=== PATIENT | male | born 1980 | race Caucasian/White ===

== ENCOUNTER 2019-04-16 08:04 | Emergency (ER) | payer OTHER ==
[2019-04-16] MEDS ORDERED: TETRACAINE HCL 0.5% 4ML OPTH ONE (08:24)
[2019-04-16] MEDS ORDERED: HYDROCODONE/APAP 5/325 MG TAB ONE (08:24)
[2019-04-16] MEDS ORDERED: FLUORESCEIN SODIUM 1 MG/WRAP ONE (08:24)
[2019-04-16] MEDS ORDERED: TETANUS & DIPHTHERIA TOX,ADULT 0.5 ML VIAL ONE (08:24)
[2019-04-16] MEDS ORDERED: AMOX/K CLAV 875 MG TAB ONE (08:24)
[2019-04-16] MEDS ORDERED: GENTAMICIN 0.3% OPTH DROP 5ML ONE (08:26)
[2019-04-16] MEDS ORDERED: TOBRAMYCIN SULF 0.3% OPTH OINT ONE (08:43)
--- NOTE | 2019-04-16 08:44 | EDPHYS ---
Physician Documentation [facility] Name: Jose Carlos Reyes Age: 38 yrs Sex: Male : 1980 Arrival Date: 04/16/2019 Time: 08:07 Bed 20 Private MD: ED Physician Truong Morgan HPI: 04/16 08:22 This 38 yrs old Male presents to ER via Ambulatory with complaints of Facial snw Injury. 08:22 The patient or guardian reports abrasion. The complaints affect the lateral canthus of snw left eye and left cheek. Context of injury: The problem was sustained at home, resulted from Dog on the couch lept down and accidentally scratched pt's face. Onset: The symptoms/episode began/occurred suddenly, just prior to arrival. Associated signs and symptoms: Loss of consciousness: This patient did not experience any loss of consciousness. Severity of symptoms: At their worst the symptoms were very mild. The patient has not experienced similar symptoms in the past. The patient has not recently seen a physician. Historical: - Allergies: 08:17 No Known Drug Allergies; tw2 - Home Meds: 08:17 None [Active]; tw2 - PMHx: 08:17 None; tw2 - PSHx: 08:17 None; tw2 - Immunization history:: Adult Immunizations. - Social history:: Smoking status: . - Ebola Screening: : Patient denies travel to an Ebola-affected area in the 21 days before illness onset. ROS: 08:17 Constitutional: Negative for fever, chills, and weight loss, Eyes: Negative for injury, snw pain, redness, and discharge, ENT: Negative for injury, pain, and discharge, Neck: Negative for injury, pain, and swelling, Cardiovascular: Negative for chest pain, palpitations, and edema, Respiratory: Negative for shortness of breath, cough, wheezing, and pleuritic chest pain, Abdomen/GI: Negative for abdominal pain, nausea, vomiting, diarrhea, and constipation, Back: Negative for injury and pain, : Negative for injury, bleeding, discharge, and swelling, MS/Extremity: Negative for injury and deformity, Neuro: Negative for headache, weakness, numbness, tingling, and seizure, Psych: Negative for depression, anxiety, suicide ideation, homicidal ideation, and hallucinations. 08:17 Skin: Positive for abrasion(s), of the lateral canthus of left eye and left cheek. Exam: 08:17 Constitutional: This is a well developed, well nourished patient who is awake, alert, snw and in no acute distress. ENT: Nares patent. No nasal discharge, no septal abnormalities noted. Tympanic membranes are normal and external auditory canals are clear. Oropharynx with no redness, swelling, or masses, exudates, or evidence of obstruction, uvula midline. Mucous membranes moist. Neck: Trachea midline, no thyromegaly or masses palpated, and no cervical lymphadenopathy. Supple, full range of motion without nuchal rigidity, or vertebral point tenderness. No Meningismus. Chest/axilla: Normal chest wall appearance and motion. Nontender with no deformity. No lesions are appreciated. Cardiovascular: Regular rate and rhythm with a normal S1 and S2. No gallops, murmurs, or rubs. Normal PMI, no JVD. No pulse deficits. Respiratory: Lungs have equal breath sounds bilaterally, clear to auscultation and percussion. No rales, rhonchi or wheezes noted. No increased work of breathing, no retractions or nasal flaring. Abdomen/GI: Soft, non-tender, with normal bowel sounds. No distension or tympany. No guarding or rebound. No evidence of tenderness throughout. Back: No spinal tenderness. No costovertebral tenderness. Full range of motion. Skin: Warm, dry with normal turgor. Normal color with no rashes, no lesions, and no evidence of cellulitis. MS/ Extremity: Pulses equal, no cyanosis. Neurovascular intact. Full, normal range of motion. Neuro: Awake and alert, GCS 15, oriented to person, place, time, and situation. Cranial nerves II-XII grossly intact. Motor strength 5/5 in all extremities. Sensory grossly intact. Cerebellar exam normal. Normal gait. Psych: Awake, alert, with orientation to person, place and time. Behavior, mood, and affect are within normal limits. 08:17 Head/face: Noted is abrasion(s), that are mild, of the left cheek and left eye. 08:17 Eyes: Pupils: equal, Extraocular movements: no acute changes, Conjunctiva: injected, in the left eye, Sclera: no appreciated abnormality. Vital Signs: 08:19 BP 147 / 73; Pulse 45; Resp 16; Temp 98.0; Pulse Ox 98% on R/A; Weight 145.15 kg; iw Height 6 ft. 3 in. (190.50 cm); Pain 3/10; 08:19 Body Mass Index 40.00 (145.15 kg, 190.50 cm) iw [place] Coma Score: 08:22 Eye Response: spontaneous(4). Verbal Response: oriented(5). Motor Response: obeys snw commands(6). Total: 15. MDM: 08:24 Patient medically screened. luna 04/16 08:17 Order name: Eye Tray; Complete Time: 08:35 snw 04/16 08:17 Order name: Fluoresene Opth strip; Complete Time: 08:20 snw Administered Medications: 08:29 Drug: Tetanus-Diphtheria Toxoid Adult 0.5 ml {Vac Press Operator: [employer]. Exp: em 11/11/2020. Lot #: [id number]. } Route: IM; Site: right deltoid; 08:49 Follow up: Response: No adverse reaction em 08:30 Drug: Goltry 5 mg-325 mg 1 tabs Route: PO; em 08:49 Follow up: Response: No adverse reaction; Pain is decreased em 08:30 Drug: Augmentin 875 mg Route: PO; em 08:50 Follow up: Response: No adverse reaction em 08:32 Drug: Tetracaine Drops 0.5 % 1 drops Route: Ophthalmic; Site: left eye; em 08:35 Follow up: Response: No adverse reaction; Pain is decreased em 08:35 Not Given (Other Intervention Used): ERYTHromycin Ointment 1 application Ophthalmic onceem 08:43 CANCELLED (other intervention used): Gentamicin Drops 0.3 % 2 drops Ophthalmic once; snw left eye 08:44 Drug: Tobramycin Ointment (0.3 %) 0.5 inches Route: Ophthalmic; Site: left eye; em 08:51 Follow up: Response: No adverse reaction em Disposition: 04/16/19 08:44 Discharged to Home. Impression: Abrasion of other part of head - face, Injury of conjunctiva and corneal abrasion without foreign body, left eye. - Condition is Stable. - Discharge Instructions: Abrasion, Corneal Abrasion, VIS, Tetanus, Diphtheria (Td) - CDC. - Prescriptions for Augmentin 875- 125 mg Oral Tablet - take 1 tablet by ORAL route every 12 hours for 10 days; 20 tablet. Mobic 7.5 mg Oral Tablet - take 1 tablet by ORAL route once daily take with food; 20 tablet. - Medication Reconciliation Form, Thank You Letter, Antibiotic Education, Prescription Opioid Use form. - Follow up: Private Physician; When: 2 - 3 days; Reason: Recheck today's complaints, Continuance of care, Re-evaluation by your physician. Follow up: Emergency Department; When: As needed; Reason: Worsening of condition. Addendum: 04/17/2019 13:20 Co-signature as Attending Physician, Truong Morgan MD I agree with the assessment and c kraus plan of care. Signatures: Truong Morgan, Hilda Harvey MD, cha, MANAGER HUMAN CAPITAL-C MANAGER HUMAN CAPITAL-Csnw Karl Nguyen, EMERGENCY ROOM DOCTOR EMERGENCY ROOM DOCTOR em Moon Molina, RN RN tw2 Corrections: (The following items were deleted from the chart) 04/16 08:43 08:36 Gentamicin Drops 0.3 % 2 drops Ophthalmic once; left eye ordered. em snw 08:43 08:43 Gentamicin Drops 0.3 % 2 drops Ophthalmic once; left eye ordered. snw snw 08:52 08:44 04/16/2019 08:44 Discharged to Home. Impression: Abrasion of other part of head - em face; Injury of conjunctiva and corneal abrasion without foreign body, left eye. Condition is Stable. Discharge Instructions: Abrasion, VIS, Tetanus, Diphtheria (Td) - CDC, Corneal Abrasion. Prescriptions for Augmentin 875-125 mg Oral Tablet - take 1 tablet by ORAL route every 12 hours for 10 days; 20 tablet, Mobic 7.5 mg Oral Tablet - take 1 tablet by ORAL route once daily take with food; 20 tablet. and Forms are Medication Reconciliation Form, Thank You Letter, Antibiotic Education, Prescription Opioid Use. Follow up: Private Physician; When: 2 - 3 days; Reason: Recheck today's complaints, Continuance of care, Re-evaluation by your physician. Follow up: Emergency Department; When: As needed; Reason: Worsening of condition. snw
--- NOTE | 2019-04-16 08:44 | ER ---
Nurse's Notes [facility] Name: Jose Carlos Reyes Age: 38 yrs Sex: Male : 1980 Arrival Date: 04/16/2019 Time: 08:07 Bed 20 Private MD: Diagnosis: Abrasion of other part of head-face;Injury of conjunctiva and corneal abrasion without foreign body, left eye Presentation: 04/16 08:17 Presenting complaint: Patient states: was lying on a mattress on floor beside couch, iw dog jumped off couch and landed on his face, scratched his left eye, left cheek, redness to left eye. Transition of care: patient was not received from another setting of care. 08:18 Initial Sepsis Screen: Does the patient meet any 2 criteria? No. Patient's initial tw2 sepsis screen is negative. Does the patient have a suspected source of infection? No. Patient's initial sepsis screen is negative. Care prior to arrival: None. 08:18 Transition of care: patient was not received from another setting of care. Onset of tw2 symptoms was April 16, 2019. Risk Assessment: Do you want to hurt yourself or someone else? Patient reports no desire to harm self or others. 08:18 Method Of Arrival: Ambulatory tw2 08:19 Acuity: ERNESTINE 4 iw Historical: - Allergies: 08:17 No Known Drug Allergies; tw2 - Home Meds: 08:17 None [Active]; tw2 - PMHx: 08:17 None; tw2 - PSHx: 08:17 None; tw2 - Immunization history:: Adult Immunizations. - Social history:: Smoking status: . - Ebola Screening: : Patient denies travel to an Ebola-affected area in the 21 days before illness onset. Screenin:16 Abuse screen: Denies threats or abuse. Nutritional screening: No deficits noted. tw2 Tuberculosis screening: No symptoms or risk factors identified. Fall Risk None identified. Assessment: 08:26 General: Appears in no apparent distress. Behavior is calm, cooperative. Pain: iw Complains of pain in left eye and left cheek. Neuro: Level of Consciousness is awake, alert, obeys commands, Oriented to person, place, time, situation. Cardiovascular: Patient's skin is warm and dry. Respiratory: Respiratory effort is even, unlabored, Respiratory pattern is regular. Derm: Skin is healthy with good turgor. Musculoskeletal: Range of motion: intact in all extremities. Injury Description: Abrasion sustained to left cheek. Vital Signs: 08:19 BP 147 / 73; Pulse 45; Resp 16; Temp 98.0; Pulse Ox 98% on R/A; Weight 145.15 kg; iw Height 6 ft. 3 in. (190.50 cm); Pain 3/10; 08:19 Body Mass Index 40.00 (145.15 kg, 190.50 cm) iw [place] Coma Score: 08:22 Eye Response: spontaneous(4). Verbal Response: oriented(5). Motor Response: obeys snw commands(6). Total: 15. ED Course: 08:07 Patient arrived in ED. rg4 08:15 Hilda Castanon FNP-C is PHCP. snw 08:15 Truong Morgan MD is Attending Physician. snw 08:17 Arm band placed on. tw2 08:18 Bed in low position. Adult w/ patient. tw2 08:19 Triage completed. iw 08:23 Karl Nguyen LVN is Primary Nurse. em 08:48 No provider procedures requiring assistance completed. Patient did not have IV access em during this emergency room visit. Administered Medications: 08:29 Drug: Tetanus-Diphtheria Toxoid Adult 0.5 ml {Inspector Paper Products: [employer]. Exp: em 11/11/2020. Lot #: [id number]. } Route: IM; Site: right deltoid; 08:49 Follow up: Response: No adverse reaction em 08:30 Drug: [place] 5 mg-325 mg 1 tabs Route: PO; em 08:49 Follow up: Response: No adverse reaction; Pain is decreased em 08:30 Drug: Augmentin 875 mg Route: PO; em 08:50 Follow up: Response: No adverse reaction em 08:32 Drug: Tetracaine Drops 0.5 % 1 drops Route: Ophthalmic; Site: left eye; em 08:35 Follow up: Response: No adverse reaction; Pain is decreased em 08:35 Not Given (Other Intervention Used): ERYTHromycin Ointment 1 application Ophthalmic onceem 08:43 CANCELLED (other intervention used): Gentamicin Drops 0.3 % 2 drops Ophthalmic once; snw left eye 08:44 Drug: Tobramycin Ointment (0.3 %) 0.5 inches Route: Ophthalmic; Site: left eye; em 08:51 Follow up: Response: No adverse reaction em Outcome: 08:44 Discharge ordered by . ludivina 08:48 Discharged to home ambulatory, with family. em 08:48 Condition: good 08:48 Discharge instructions given to patient, family, Instructed on discharge instructions, follow up and referral plans. medication usage, Demonstrated understanding of instructions, follow-up care, medications, Prescriptions given X 2. 08:52 Patient left the ED. em Signatures: Hilda Castanon, GLASSWARE MAKER-C GLASSWARE MAKER-Csnw Karl Nguyen, FOAMING MACHINE OPERATOR FOAMING MACHINE OPERATOR em Lucía Martinez, RN RN iw Moon Molina RN RN tw2 Charo Frazier 4
[2019-04-16 08:56] VITALS: BP 147/73; TEMP 98; O2SAT 98
--- OUTSIDE RECORDS SUMMARY | 2019-04-18 06:11 | XMS REPORT | Summary of Care ---
:1980 Author Organization [facility] Address [address] [place] [id number] Care Team Providers Name Role Phone Lucio Jin MD Primary Care Provider Unavailable Reason for Visit Reason Comments Follow-up AUDIOGRAM CI eval Encounter Details Date Type Department Care Team Description 12/10/2018 Office Visit [facility] Ear, Nose Kadeem, Ludy, Auditory canal atresia, external (Primary Dx); and Throat-League PA-C Aural atresia; City [address] [place] [address] Mixed conductive and sensorineural hearing loss of both ears [address] [place] [phone] Allergies No Known Allergiesdocumented as of this encounter (statuses as of 01/11/2019) Medications Medication Sig Dispensed Refills Start Date End Date Status ciprofloxacin-dexamethas Place 4 Drops in 7.5 mL 2 11/19/2018 Active one (CIPRODEX) 0.3-0.1 % left ear 2 (two) otic dropsIndications: times daily. Mixed conductive and sensorineural hearing loss of both ears documented as of this encounter (statuses as of 01/11/2019) Active Problems Not on filedocumented as of this encounter (statuses as of 01/11/2019) Social History Tobacco Use Types Packs/Day Years Used Date Never Smoker Smokeless Tobacco: Never Used Sex Assigned at Date Recorded Not on file Job Start Date Occupation Industry Not on file Not on file Not on file Travel History Travel Start Travel End No recent travel history available. documented as of this encounter Last Filed Vital Signs Vital Sign Reading Time Taken Comments Blood Pressure - - Pulse - - Temperature - - Respiratory Rate - - Oxygen Saturation - - Inhaled Oxygen Concentration - - Weight 149.2 kg (329 lb) 12/10/2018 3:44 PM CDT Height - - Body Mass Index 44.62 11/19/2018 10:34 AM CDT documented in this encounter Patient Instructions Patient InstructionsRamila Perez - 12/10/2018 3:30 PM CDT Your surgery is scheduled on: 02/11/2019 (you will receive a call on 2018 between 1pm-4:30pm with time of surgery) [facility] [address] [place] [id number] Day Surgery If you have any questions, or if you need to cancel/reschedule the surgery or post-op appointments, please contact us at [phone]. Thank you. documented in this encounter Progress Notes Thomas Stephens MD - 12/10/2018 3:30 PM CDTAfter discussion with Marlys Ghotra. Medicaid will only cover one ear. Pt has no preference asto which ear to implant. Will therefore plan on left side. udy Quan PA-C - 12/10/2018 3:30 PM CDT Otolaryngology Clinic Visit Name: Jose Carlos Reyes Date: 12/10/2018 CC: Pre-op for BAHA HPI: Jose Carlos Reyes is a 38 year old male with cognitive impairment and bilateral aural atresia s/pmultiple otologic surgeries for repair at OSH here today for pre-op and signing of surgical consentsfor bilateral BAHA implantation. He was seen previously for evaluation of hearing loss where L auralpolyp and associated infection was noted and now resolved. Audiogram demonstrated severe mixed HL bilaterally. CT results below. Patient is accompanied by a friend who provides most of the history. No new concerns today. Patient would like to pursue a surgical intervention at this time. No other ENT complaints or concerns voiced by patient today. PMHX Past Medical History: Diagnosis Date Congenital hearing loss Past Surgical History: Procedure Laterality Date OTOPLASTY FMHX History reviewed. No pertinent family history. Social Hx Social History Socioeconomic History Marital status: Single Spouse name: Not on file Number of children: Not on file Years of education: Not on file Highest education level: Not on file Occupational History Not on file Social Needs Financial resource strain: Not on file Food insecurity: Worry: Not on file Inability: Not on file Transportation needs: Medical: Not on file Non-medical: Not on file Tobacco Use Smoking status: Never Smoker Smokeless tobacco: Never Used Substance and Sexual Activity Alcohol use: Not on file Drug use: Not on file Sexual activity: Not on file Lifestyle Physical activity: Days per week: Not on file Minutes per session: Not on file Stress: Not on file Relationships Social connections: Talks on phone: Not on file Gets together: Not on file Attends confucianist service: Not on file Active member of club or organization: Not on file Attends meetings of clubs or organizations: Not on file Relationship status: Not on file Intimate partner violence: Fear of current or ex partner: Not on file Emotionally abused: Not on file Physically abused: Not on file Forced sexual activity: Not on file Other Topics Concern Not on file Social History Narrative Not on file ROS: Constitutional: No undesired weight loss, night sweats or chills. Head: No headaches. No lumps or bumps in the scalp. Eyes: No changes in vision. Ears: hearing loss Throat: No changes in voice or swallowing function. Respiratory: No shortness of breath, cough, or blood in sputum. Cardiovascular: No chest pain or palpitations. No acute difference in exercise tolerance. Abdomen: No abdominal pain. No blood in stool. Urinary: No pelvic pain or blood in the urine. Extremities: No numbness in hands or toes. No swelling of the hands or feet. Neurologic: No acute changes in gait or mobility. No weakness in extremities. Does patient smoke: no Patient counseled on smoking cessation: no PE: Vitals: 12/10/18 1544 Weight: 329 lb (149.2 kg) Constitutional: Normocephalic, atraumatic, obese Eye: No lesions or asymmetry. Pupils grossly symmetric. No gross vision loss. Ears: Right ear with postauricular scar, evidence of multiple prior surgeries of external auricle. Bilateral canal atresia. Circumferential scarring and lateralization of tremaine TM bilaterally. Nose: No external deviations. Nasal airways are bilaterally patent. Anterior rhinoscopy reveals nomasses, lesions, or drainage bilaterally. Oral Cavity: No trismus. Lips are normal. Oral cavity mucosa is intact. Dentition is poor.Tongue is full, midline, and soft. Oropharynx: Normal with no evidence of masses, lesions, or drainage. Neck/Lymph: Palpation of the parotid areas and lateral necks bilaterally reveal no masses or lymphadenopathy. Range of motion of the neck is normal. Anteriorly, the trachea is midline and the thyroid is non-palpable. Cranial Nerves/Neuro: Cranial nerves 2-12 are normal and symmetric. Specifically , facial nerve intact. Respiratory: Effortless breathing, No stridor. Cardiovascular: Radial pulses strong and symmetric. Hands and digits well perfused. Head and Neck Skin: No skin lesions or masses. Results CT Temporal Bone 11/19/2018 There is complete opacification in the mid external canal with otherwise preserved morphology. No osseous erosions are seen. The right tympanic membrane is faintly visualized. The middle ear ossicles and middle ear cavity are unremarkable. The osseous inner ear structures and facial nerve canal are within normal limits. The right mastoid air cells are slightly underpneumatized but otherwise clear. Chronic ossifications are seen in the external auditory canals, inferior margin and subcutaneous soft tissues. These are likely dystrophic (3:19). LEFT TEMPORAL BONE: Complete obliteration of the lumen of the left external auditory canal is seen in the medial third. The morphology of the left external artery canal is slightly straightened. Otherwise no osseous erosions are seen. Secondary to the opacification in the medial aspect of the left internal artery canal. The left tympanic membrane is not separately identified. The osseous inner ear structures are grossly unremarkable. The left middle ear cavity and mastoid air cells are clear. The osseous inner ear structures and facial nerve canal are within normal limits. Ill-defined ossifications are again noted adjacent to the floor of the left external auditory canal, possibly dystrophic. Diagnostic Tests Reviewed: Audiogram 11/09/18 Severe mixed hearing loss bilaterally (R>L). WDS 80% (R), 88% (L). Tympanometry: Type B tympanogram bilaterally. Diagnosis ICD-10-CM ICD-9-CM 1. 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 Aural atresia Q17.9 744.29 3. Mixed conductive and sensorineural hearing loss of both ears H90.6 389.22 PA Attestation: ILudy PA-C was involved in this patient's care as directed by Dr. Stephens, who evaluated the patient, performed the services, and formulated the plan of care below. 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 L otorrhea and aural polyp has resolved with oral and topical treatment. Dr Stephens met withpatient and his friend today to sign consents for the BAHA surgery today. Dr. Stephens discussed all details of the surgery with patient today. -Discussed indications, benefits, and risks of bilateral BAHA with patient today. -Consent/Education: The patient was educated concerning the patient's health status and planned surgical procedure as well as possible alternative therapies. Both written and verbal education was givenpreoperatively including the usual risks, benefits, and possible complications. These were discussedand the patient verbalized understanding and desired to proceed with the surgical plan. -All risks, benefits, complications, and alternatives including but not limited to pain, infection, bleeding, damage to surrounding structures, failure to cure , need for further procedures, recurrence,scarring outcome were discussed. -Consent provided and signed by patient with Dr. Stephens today. RTC: 1 week post-op (will schedule in Ludy Quan PA-C's clinic with Dr. Stephens to evaluate patient post-op.) This visit did not involve counseling and coordination that comprised more than 50% of the visit time. Ludy Quan PA-C [facility] Department of Otolaryngology [phone] signed by Ludy Quan PA-C at 12/13/2018 8:26 AM CDTdocumented in this encounter Plan of Treatment Date Type Specialty Care Team Description 02/11/2019 Hospital Encounter Surgery Thomas Stephens MD [id number] [place] [address] [phone] 02/11/2019 Surgery Surgery Thomas Stephens MD [facility] [id number] [place], [place] [id number] 02/18/2019 Office Visit Otolaryngology Ludy Quan PA-C [address] [place] [address] [phone] Health Maintenance Due Date Last Done Comments VARICELLA VACCINES (1 of 2 - 13+ 1993 2-dose series) DTaP,Tdap,and Td Vaccines (1 - 11/15/1999 Tdap) INFLUENZA VACCINE 02/06/2019 PNEUMOCOCCAL 0-64 YEARS COMBINED Aged Out No longer eligible based on SERIES patient's age to complete this topic documented as of this encounter Results Not on filedocumented in this encounter Visit Diagnoses Diagnosis Auditory canal atresia, external - Primary Other congenital anomaly of external ear causing impairment of hearing Aural atresia Other congenital anomaly of ear Mixed conductive and sensorineural hearing loss of both ears Mixed hearing loss, bilateral documented in this encounter Insurance Payer Benefit Plan / Subscriber ID Effective Dates Phone Address Type Group [facility] xxxxxxxxx 2018-Present Medicaid COMM PLAN - PLUS MANAGED MEDICAID documented as of this encounter
--- OUTSIDE RECORDS SUMMARY | 2019-04-18 06:11 | XMS REPORT | Summary of Care ---
:1980 Author Organization [facility] - Health Address [address] [place] [address] Care Team Providers Name Role Phone Lucio Jin MD Primary Care Provider Unavailable Reason for Visit Reason Comments Hearing Aid Evaluation Follow-up Encounter Details Date Type Department Care Team Description 12/31/2018 Telephone [facility] Ear, Nose Steph Mart AUD Hearing Aid and Th[facility] [address] [place] [address]. Evaluation; [place] [address] [address] [phone] [place] [address] Allergies No Known Allergiesdocumented as of this encounter (statuses as of 01/07/2019) Medications Medication Sig Dispensed Refills Start Date End Date Status ciprofloxacin-dexamethas Place 4 Drops in 7.5 mL 2 11/19/2018 Active one (CIPRODEX) 0.3-0.1 % left ear 2 (two) otic dropsIndications: times daily. Mixed conductive and sensorineural hearing loss of both ears documented as of this encounter (statuses as of 01/07/2019) Active Problems Not on filedocumented as of this encounter (statuses as of 01/07/2019) Social History Tobacco Use Types Packs/Day Years Used Date Never Smoker Smokeless Tobacco: Never Used Sex Assigned at Date Recorded Not on file Job Start Date Occupation Industry Not on file Not on file Not on file Travel History Travel Start Travel End No recent travel history available. documented as of this encounter Last Filed Vital Signs Not on filedocumented in this encounter Plan of Treatment Date Type Specialty Care Team Description 02/11/2019 Hospital Encounter Surgery Thomas Stephens MD [id number] [place], [place] [address] 02/11/2019 Surgery Surgery Thomas Stephens MD BONE ANCHORED HEARING [address] AIDE INSERTION [id number] [place], [place] [id number] 02/18/2019 Office Visit Otolaryngology Ludy Quan PA-C [address] [place] [address] [phone] Health Maintenance Due Date Last Done Comments VARICELLA VACCINES (1 of 2 - 13+ 1993 2-dose series) DTaP,Tdap,and Td Vaccines (1 - 11/15/1999 Tdap) INFLUENZA VACCINE 02/06/2019 PNEUMOCOCCAL 0-64 YEARS COMBINED Aged Out No longer eligible based on SERIES patient's age to complete this topic documented as of this encounter Results Not on filedocumented in this encounter Insurance Payer Benefit Plan / Subscriber ID Effective Dates Phone Address Type Group [facility] xxxxxxxxx 2018-Present Medicaid COMM PLAN - PLUS MANAGED MEDICAID documented as of this encounter
--- OUTSIDE RECORDS SUMMARY | 2019-04-18 06:11 | XMS REPORT ---
:1980 Author [facility] Address [address] [place] [address] Dr. Reyes[address] [place] [address] Care Team Providers Name Role Phone Unavailable Unavailable Unavailable Problems This patient has no known problems. Allergies, Adverse Reactions, Alerts This patient has no known allergies or adverse reactions. Medications This patient has no known medications.
--- OUTSIDE RECORDS SUMMARY | 2019-04-18 06:11 | XMS REPORT | Encounter Summary ---
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 Hearing loss 4. Bleeding from ear 5. Otalgia Discussion Note: None recorded.Patient educational handouts: No information available. Plan of Care Patient Instructions Patient discharged with the following instructions per Dr. Jin Referring out to see an [facility]olgist [facility] for futher evaluation Follow up on PRN basis If any other problem patient is to call the office Patient verbalized understanding the instructions given along with my office nurse Maisha Reminders Provider Appointments None recorded. Lab None recorded. Referral None recorded. Procedures None recorded. Surgeries None recorded. Imaging None recorded. Medications Name Start Date Lialda 1.2 gram tablet,delayed release omeprazole 20 mg capsule,delayed release Medications Administered None recorded. Vitals Height Weight BMI Blood Pressure 6 ft 2 in 330.2 lbs 42.4 kg/m2 120/84 mm[Hg] Lab Results None recorded. Allergies Code Code System Name Reaction Severity Status Onset NKDA Problems No Known Problems Procedures None recorded. Vaccine List None recorded. Social History Smoking Status Never Smoker Past Encounters 10/27/2018 Congenital Absence of External Ear; Stenosis of External Auditory Canal; Hearing Loss; Bleeding from Ear; Otalgia Lucio Jin MD: [address], [address], [place] [address], Ph. History of Present Illness None recorded. Review of Systems ENT ROS Reported By: Patient ENMT: ENMT: ear pain, hearing loss, sinus pressure, congestion, runny nose Physical Exam ENT Exam Davin Focus-No Stethoscope Reported By: Patient Constitutional: General Appearance: obese. Communication: aphonic Head/Face: Inspection: scarring. Facial strength: left-sided weakness (House grade ), right-sided weakness (House grade ). Sinuses: no tenderness. 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 Left External auditory canal: ; severe meatal stenosis and bleeding
--- OUTSIDE RECORDS SUMMARY | 2019-04-18 06:12 | XMS REPORT | Summary of Care ---
:1980 Author Organization [facility] - [facility] Address [address] [place] [address] Care Team Providers Name Role Phone Lucio Jin MD Primary Care Provider Unavailable Reason for Visit Reason Comments Appointment Post op Encounter Details Date Type Department Care Team Description 02/14/2019 Telephone [facility] Ear, Nose Thomas Stephens MD Appointment (Post op) and Throat-[id number] [place] [phone] Allergies No Known Allergiesdocumented as of this encounter (statuses as of 02/15/2019) Medications Medication Sig Dispensed Refills Start Date End Date Status omeprazole 20 mg TAKE 1 CAPSULE BY 3 11/29/2018 Active capsule MOUTH IN THE MORNING LIALDA 1.2 gram EC 2 TABLETS BY MOUTH 3 11/29/2018 Active tablet TWICE A DAY ibuprofen 600 mg Take 1 tablet by 60 tablet 0 02/11/2019 Active tabletIndications: mouth every 6 Conductive hearing (six) hours as loss, bilateral needed for Pain (scale 1-3) or Pain (scale 4-6). HYDROcodone-acetaminop Take 1 tablet by 30 tablet 0 02/11/2019 Active hen 5-325 mg mouth every 6 tabletIndications: (six) hours as Conductive hearing needed for Pain loss, bilateral (scale 4-6) or Pain (scale 7-10). documented as of this encounter (statuses as of 02/15/2019) Active Problems No known active problemsdocumented as of this encounter (statuses as of 2018) Social History Tobacco Use Types Packs/Day Years [...] Treatment Date Type Specialty Care Team Description 02/25/2019 Office Visit Otolaryngology Ludy Quan PA-C [address] [place] [address] [phone] Health Maintenance Due Date Last Done Comments VARICELLA VACCINES (1 of 2 - 13+ 1993 2-dose series) DTaP,Tdap,and Td Vaccines (1 - 11/15/1999 Tdap) INFLUENZA VACCINE (#1) 2019 PNEUMOCOCCAL 0-64 YEARS COMBINED Aged Out No longer eligible based on SERIES patient's age to complete this topic documented as of this encounter Implants Implanted Type Area Rug Cleaner Hand Device Shelf Model / Identifier Expiration Date Serial / Lot Baha Implant [id number] 4mm & [id number] Implant Magnet [employer]chle[employer] #[id number] & [id number] - Sna Left: Ear [employer]chlear [employer] 06/23/2023 [id number] & [id number] / Implanted: Qty: 1 on 02/11/2019 at [facility] NA / [id number] Baha Implant [id number] 4mm & [id number] Implant Magnet [employer]chlear [employer] #[id number] & [id number] - Sna Left: Ear [employer]chlear [employer] 12/15/2022 [id number] & [id number] / Implanted: Qty: 1 on 02/11/2019 at [facility] NA / [id number] documented as of this encounter Results Not on filedocumented in this encounter Insurance Payer Benefit Plan / Subscriber ID Effective Dates Phone Address Type Group [facility] xxxxxxxxx 2018-Present Medicaid COMM PLAN - PLUS MANAGED MEDICAID documented as of this encounter
--- OUTSIDE RECORDS SUMMARY | 2019-04-18 06:12 | XMS REPORT | Summary of Care ---
:1980 Author Organization [facility] - Health Address [address] [place] [address] Care Team Providers Name Role Phone Lucio Jin MD Primary Care Provider Unavailable Reason for Visit Reason Comments Assessment Encounter Details Date Type Department Care Team Description 02/24/2019 Telephone [facility] Ear, Nose and YoungThomas MD Assessment Throat-[address] CF[address] [address] [place] [address] [place] [phone] Allergies No Known Allergiesdocumented as of this encounter (statuses as of 02/25/2019) Medications Medication Sig Dispensed Refills Start Date [...] as of this encounter (statuses as of 02/25/2019) Active Problems No known active problemsdocumented as [...] Treatment Date Type Specialty Care Team Description 03/04/2019 Office Visit Otolaryngology Ludy Quan PA-C [address] [place] [address] [phone] Health Maintenance Due Date Last Done Comments VARICELLA VACCINES (1 of 2 - 13+ 1993 2-dose series) DTaP,Tdap,and Td Vaccines (1 - 11/15/1999 Tdap) INFLUENZA VACCINE (#1) 2019 PNEUMOCOCCAL 0-64 YEARS COMBINED Aged Out No longer eligible based on SERIES patient's age to complete this topic documented as of this encounter Implants Implanted Type Area Computing Tutor Device Shelf Model / Identifier Expiration Date Serial / Lot Baha Implant [id number] 4mm & [id number] Implant Magnet [employer]chlear [employer] #[id number] & [id number] - Sna Left: Ear [employer]chlear [employer] 06/23/2023 [id number] & [id number] / Implanted: Qty: 1 on 02/11/2019 at [facility] NA / [id number] Baha Implant [id number] 4mm & [id number] Implant Magnet [employer]chlear [employer] #[id number] & [id number] - Sna Left: Ear [employer]chlear [employer] 12/15/2022 [id number] & [id number] / Implanted: Qty: 1 on 02/11/2019 at [facility] NA / [id number] documented as of this encounter Results Not on filedocumented in this encounter Insurance Payer Benefit Plan / Subscriber ID Effective Dates Phone Address Type Group [facility] xxxxxxxxx 2018-Present Medicaid COMM PLAN - PLUS MANAGED MEDICAID documented as of this encounter
--- OUTSIDE RECORDS SUMMARY | 2019-04-18 06:12 | XMS REPORT | Summary of Care ---
:1980 Author Organization [facility] Address [address] [place] [address] Care Team Providers Name Role Phone Lucio Jin MD Primary Care Provider Unavailable Reason for Referral Other (Routine) Status Reason Specialty Diagnoses / Referred By Referred To Procedures Contact Contact New Request Diagnoses Conductive hearing loss, bilateral Thomas Stephens MD [place], [place], [place] Procedures Discharge Follow-up: Specialty Provider MIHAI RODRIGUEZ; 1 Week 301 [facility] [address] [address] Phone: Reason for Visit Auth/Cert Status Reason Specialty Diagnoses / Procedures Referred By Contact Referred To Contact Surgery Diagnoses baha Vl Preop Procedures [facility] CODING HELP BONE ANCHORED HEARING AIDE INSERTION [address] [place] [address] Encounter Details Date Type Department Care Team Description 02/11/2019 Hospital Encounter [facility] Thomas Stephens MD Post Anesthesia Care Unit [address] [facility] [address] [phone] Allergies No Known Allergiesdocumented as of this encounter (statuses as of 02/11/2019) Medications Medication Sig Dispensed Refills Start Date End Date Status omeprazole 20 mg TAKE 1 3 11/29/2018 Active capsule CAPSULE BY MOUTH IN THE MORNING LIALDA 1.2 gram EC 2 TABLETS BY 3 11/29/2018 Active tablet MOUTH TWICE A DAY ibuprofen 600 mg Take 1 tablet 60 tablet 0 02/11/2019 Active tabletIndications: by mouth Conductive hearing every 6 (six) loss, bilateral hours as needed for Pain (scale 1-3) or Pain (scale 4-6). HYDROcodone-acetamin Take 1 tablet 30 tablet 0 02/11/2019 Active ophen 5-325 mg by mouth tabletIndications: every 6 (six) Conductive hearing hours as loss, bilateral needed for Pain (scale 4-6) or Pain (scale 7-10). ciprofloxacin-dexame Place 4 Drops 7.5 mL 2 11/19/2018 02/09/2019 Discontinued thasone (CIPRODEX) in left ear 2 0.3-0.1 % otic (two) times dropsIndications: daily. Mixed conductive and sensorineural hearing loss of both ears HYDROcodone-acetamin Take 1 tablet 30 tablet 0 02/11/2019 02/11/2019 Discontinued ophen 7.5-325 mg per by mouth tabletIndications: every 6 (six) Conductive hearing hours as loss, bilateral needed for Pain. documented as of this encounter (statuses as of 02/11/2019) Active Problems No known active problemsdocumented as of this encounter (statuses as of 2018) Social History Tobacco Use Types Packs/Day Years Used Date Never Smoker Smokeless Tobacco: Never Used Tobacco Cessation: Counseling Given: No Sex Assigned at Date Recorded Not on file Job Start Date Occupation Industry Not on file Not on file Not on file Travel History Travel Start Travel End No recent travel history available. documented as of this encounter Last Filed Vital Signs Vital Sign Reading Time Taken Comments Blood Pressure 128/76 02/11/2019 3:30 PM CDT Pulse 74 02/11/2019 3:30 PM CDT Temperature 35.4 C (95.7 F) 02/11/2019 2:19 PM CDT Respiratory Rate 15 02/11/2019 3:30 PM CDT Oxygen Saturation 95% 02/11/2019 3:30 PM CDT Inhaled Oxygen Concentration - - Weight 149.7 kg (330 lb) 02/11/2019 10:50 AM CDT Height 190.5 cm (6' 3") 02/11/2019 10:50 AM CDT Body Mass Index 41.25 02/11/2019 10:50 AM CDT documented in this encounter Discharge Instructions Melodie Murphy RN - 02/11/2019 General Discharge Instructions: Follow instructions as indicated below: 1. The medication that was used will be acting in your system for the next 24 hours, so you might feel a little drowsy, with impaired judgment and or motor function. This feeling should go wear off. Because the medication is still in your system for the next 24 hours you SHOULD NOT: Drive a car, operate machinery or power tool. Drink any alcohol beverages (including beer or wine). Make any important decisions or sign any legal documents. 2. You should rest the remainder of the day and not engage in any physical activity. Move slowly today. After lying down, sit on the edge of the bed for a moment before standing. YOU ARE RESPONSIBLEFOR HAVING SOMEONE AT HOME WITH YOU DURING THE AFTERNOON AND NIGHT IMMEDIATELY FOLLOWING YOUR SURGERY. Patient should cough and deep breathe every 2-4 hours while awake to avoid respiratory complications. 3. Activity: No heavy lifting or strenuous activity 4. Wound/ dressing care: You may remove outer dressing tomorrow morning. You may shower the day after tomorrow. Use bacitracin ointment twice daily on the incision line. Wash the incision daily starting tomorrow. 5. Special Instructions: follow up in one week. 6. Other discharge instructions. N/A 7. Weight: In general, sudden weight gains or losses should be reported to your provider. Cardiac patients should weigh daily and notify their provider for a weight gain of 3 pounds per day or 5 pounds per week. 8. Tobacco Avoidance: Follow recommendations below 9. Because the medications used could procedure some residual nausea and vomiting after you go home,you should eat lightly today, starting with clear liquids (broth, soft drinks, apple juice, jello) and toast or crackers, progressing to bland solid foods and then to your normal diet as tolerated, unless otherwise stated by your surgeon. If you get sick, wait a couple of hours and then begin to eat. After 24 hours the nausea should be gone. If your nausea persists, contact your physician. 10. You may experience some pain and your physician will advise you on what to take for discomfort.This should be taken as directed. If the pain is not relieved, contact your physician. You may also have a sore throat from the airway that was in place. You may uses lozenges, throat spray (such asChloraseptic), or warm salt water gargles for symptomatic relief. 11. If you feel warm, take your temperature. If it is 101 degrees or above call your physician. 12. If you are unable to urinate within five hours after your procedure, call your physician. 13. The type of surgery performed will determine how much bleeding (if any) to expect. Normally, some spotting might occur. If your dressing pad becomes saturated, notify your physician. Elevate surgical site, if applicable, to reduced swelling and pain. Call your doctor if you have signs of infection: ? Increased tenderness at the surgical site ? Red streaks or increased redness of the area ? Bad-smelling discharge from the incision ? Fever of 101F or higher ? General tired feeling that doesnt improve If you experience any of the following symptoms fever greater than 101, uncontrolled pain not relieved by pain medications, uncontrolled nausea or vomiting or any other concerns you have, please followup with your physician. For worsening symptoms/changing condition/problems or questions: Non-emergency/urgent: Call the [employer] Hotline at or Emergency: Go to the closest emergency room or call 911 Contact Information Thomas Stephens MD ~ [phone] After Hours: [facility] Access Line [phone] and ask to speak to the Nurse On-Call TOBACCO AVOIDANCE Exposure to tobacco either from smoking or from second hand (environmental) smoke or smokeless tobacco (snuff) is damaging to your health. This information is to encourage everyone to avoid tobacco exposure. It is recommended that you: If you smoke or use smokeless tobacco, we encourage you to quit. If you have already quit smoking, continue your good work! If you do not smoke or use smokeless tobacco, do not start. Avoid secondhand smoke. Additional Resources: You may want to contact these organizations for further information on smoking and how to quit- [place] [employer] - http://www.lungusa.org/stop-smoking/ [place] [employer] - http://www.cancer.org/Healthy/StayAwayfromTobacco/ index [place] [employer] - http://www.heart.org/HEARTORG/GettingHealthy/ QuitSmoking/Quit-Smoking_UC_001085_SubHomePage.jsp TOBACCO AVOIDANCE Exposure to tobacco either from smoking or from second hand (environmental) smoke or smokeless tobacco (snuff) is damaging to your health. This information is to encourage everyone to avoid tobacco exposure. It is recommended that you: ? If you smoke or use smokeless tobacco, we encourage you to quit. ? If you have already quit smoking, continue your good work! ? If you do not smoke or use smokeless tobacco, do not start. ? Avoid secondhand smoke. Additional Resources You may want to contact these organizations for further information on smoking and how to quit. [place] [employer], http://www.lungusa.org/stop-smoking/ [place] [employer], http://www.cancer.org/Healthy/StayAwayfromTobacco/index [place] [employer], http://www.heart.org/HEARTORG/GettingHealthy/ QuitSmoking/Quit-Smoking_UCM_001085_SubHomePage.jsp documented in this encounter Plan of Treatment Date Type Specialty Care Team Description 02/18/2019 Office Visit Otolaryngology Mihai Rodriguez PA-C [address] [place], [place] [address] Health Maintenance Due Date Last Done Comments VARICELLA VACCINES (1 of 2 - 13+ 1993 2-dose series) DTaP,Tdap,and Td Vaccines (1 - 11/15/1999 Tdap) INFLUENZA VACCINE (#1) 2019 PNEUMOCOCCAL 0-64 YEARS COMBINED Aged Out No longer eligible based on SERIES patient's age to complete this topic documented as of this encounter Implants Implanted Type Area Data Entry Coordinator Device Shelf Model / Identifier Expiration Date Serial / Lot Baha Implant [id number] 4mm & [id number] Implant Magnet [employer]chlear [employer] #[id number] & [id number] - Sna Left: Ear Cochlear [employer] 06/23/2023 [id number] & [id number] / Implanted: Qty: 1 on 02/11/2019 at [facility] NA / [id number] Baha Implant Bi300 4mm & [id number] Implant Magnet Cochlear [employer] #[id number] & [id number] - Sna Left: Ear Cochlear [employer] 12/15/2022 [id number] & [id number] / Implanted: Qty: 1 on 02/11/2019 at [facility] / [id number] documented as of this encounter Procedures Procedure Name Priority Date/Time Associated Diagnosis Comments CONSENT/REFUSAL FOR Routine 02/11/2019 10:48 AM DIAGNOSIS AND TREATMENT CDT ASSIGNMENT OF BENEFITS Routine 02/11/2019 10:48 AM CDT documented in this encounter Results Not on filedocumented in this encounter Visit Diagnoses Diagnosis Conductive hearing loss, bilateral - Primary documented in this encounter Administered Medications Medication Order MAR Action Action Date Dose Rate Site bacitracin 500 unit/g ointment Given 02/11/2019 1:17 PM CDT 1 Inch pkt PRN, Starting Thu02/11/19 at 1317, Until Discontinued, Routine, Intra-op FENTanyl PF (SUBLIMAZE (PF)) injection 25 mcg 25 mcg, Slow IV Push, Q5MIN PRN, 4 doses, Starting Thu02/11/19 at 1436, Until Discontinued, Routine, Pain (scale 4-6), PACU lactated ringers IV infusion 1,000 mL at 42 mL/hr, 1,000 mL, IV Infusion, CONTINUOUS, Starting Thu02/11/19 at 1445, Until Discontinued, Routine, PACU methylene blue 1 % (10 mg/mL) Given 02/11/2019 1:15 PM CDT 1 Drop See Comment injection PRN, Starting Thu02/11/19 at 1315, Until Discontinued, Routine, Intra-op ondansetron (ZOFRAN (PF)) injection 4 mg 4 mg, Slow IV Push, PRN, 1 dose, Starting Thu02/11/19 at 1436, Until Discontinued, Routine, Nausea and Vomiting (N/V), PACU documented in this encounter Insurance Payer Benefit Plan / Subscriber ID Effective Dates Phone Address Type Group [facility] xxxxxxxxx 2018-Present Medicaid COMM PLAN - PLUS MANAGED MEDICAID documented as of this encounter
--- OUTSIDE RECORDS SUMMARY | 2019-04-18 06:12 | XMS REPORT | Summary of Care ---
:1980 Author Organization [facility] - [facility] Address [address] [place] [address] Care Team Providers Name Role Phone Lucio Jin MD Primary Care Provider Unavailable Reason for Visit Reason Comments Appointment Post op Encounter Details Date Type Department Care Team Description 02/14/2019 Telephone [facility] Ear, Nose Thomas Stephens MD Appointment (Post op) and Throat-[id number] [place] [address] [phone] Allergies No Known Allergiesdocumented as of this encounter (statuses as of 02/14/2019) Medications Medication Sig Dispensed Refills Start Date [...] as of this encounter (statuses as of 02/14/2019) Active Problems No known active problemsdocumented as [...] Care Team Description 02/18/2019 Office Visit Otolaryngology Ludy Quan PA-C [address] [place] [address] [phone] Health Maintenance Due Date Last Done Comments VARICELLA VACCINES (1 of 2 - + 1993 2-dose series) DTaP,Tdap,and Td Vaccines (1 - 11/15/1999 Tdap) INFLUENZA VACCINE (#1) 2019 PNEUMOCOCCAL 0-64 YEARS COMBINED Aged Out No longer eligible based on SERIES patient's age to complete this topic documented as of this encounter Implants Implanted Type Area Compressor Station Engineer Chief Device Shelf Model / Identifier Expiration Date Serial / Lot Baha Implant [id number] 4mm & [id number] Implant Magnet Cochlear [employer] #[id number] & [id number] - Sna Left: Ear Cochlear Americas 06/23/2023 [id number] & [id number] / Implanted: Qty: 1 on 02/11/2019 at [facility] NA / [id number] Baha Implant [id number] 4mm & [id number] Implant Magnet Cochlear [employer] #[id number] & [id number] - Sna Left: Ear Cochlear [employer] 12/15/2022 [id number] & [id number] / Implanted: Qty: 1 on 02/11/2019 at [facility] NA / [id number] documented as of this encounter Results Not on filedocumented in this encounter Insurance Payer Benefit Plan / Subscriber ID Effective Dates Phone Address Type Group [facility] xxxxxxxxx 2018-Present Medicaid COMM PLAN - PLUS MANAGED MEDICAID documented as of this encounter
--- OUTSIDE RECORDS SUMMARY | 2019-04-18 06:12 | XMS REPORT | Summary of Care ---
:1980 Author Organization [facility] - [facility] Address [address] [place] [address] Care Team Providers Name Role Phone Lucio Jin MD Primary Care Provider Unavailable Encounter Details Date Type Department Care Team Description 02/11/2019 Orders Only [facility] Doctor Unassigned, No [address] [facility] [place] [address] [address] [place] [address] Allergies No Known Allergiesdocumented as of this [...] Visit Otolaryngology Ludy Quan PA-C [address] [place] [address] [phone] Health Maintenance Due Date Last Done Comments VARICELLA VACCINES (1 of 2 - 13+ 1993 2-dose series) DTaP,Tdap,and Td Vaccines (1 - 11/15/1999 Tdap) INFLUENZA VACCINE (#1) 2019 PNEUMOCOCCAL 0-64 YEARS COMBINED Aged Out No longer eligible based on SERIES patient's age to complete this topic documented as of this encounter Implants Implanted Type Area Product Marketing Engineer Device Shelf Model / Identifier Expiration Date Serial / Lot Baha Implant [id number] 4mm & [id number] Implant Magnet Cochlear [employer] #[id number] & [id number] - Sna Left: Ear Cochlear [employer] 06/23/2023 [id number] & [id number] / Implanted: Qty: 1 on 02/11/2019 at [facility] NA / [id number] Baha Implant [id number] 4mm & [id number] Implant Magnet Cochlear [employer] #[id number] & [id number] - Sna Left: Ear Cochlear [employer] 12/15/2022 [id number] & [id number] / Implanted: Qty: 1 on 02/11/2019 at [facility] NA / [id number] documented as of this encounter Procedures Procedure Name Priority Date/Time Associated Diagnosis Comments DAY SURGERY - [facility] Routine 02/11/2019 12:01 AM VIKA CAMEJO documented in this encounter Results Not on filedocumented in this encounter Insurance Payer Benefit Plan / Subscriber ID Effective Dates Phone Address Type Group [facility] xxxxxxxxx 2018-Present Medicaid COMM PLAN - PLUS MANAGED MEDICAID documented as of this encounter
--- OUTSIDE RECORDS SUMMARY | 2019-04-18 06:12 | XMS REPORT | Summary of Care ---
:1980 Author Organization [facility] Address [address] [place] [address] Care Team Providers Name Role Phone Lucio Jin MD Primary Care Provider Unavailable Reason for Visit Reason Comments Hearing Aid Evaluation (Routine) Status Reason Specialty Diagnoses / Referred By Referred To Procedures Contact Contact New Request Audiology Diagnoses Auditory canal atresia, external Christine Reyes Procedures CONSULT AUDIOLOGY ELLIS Mcbride [address] [place] [address] Encounter Details Date Type Department Care Team Description 12/10/2018 Ancillary Visit [facility] Ear, Daria Ferguson, PHD [address] [facility] [id number] [place], [place] [id number] Encounter for hearing aid consultation (Primary Dx); Harlan and Steph Mart, AUD [address] [facility] [place] [address] Mixed hearing loss, bilateral Throat-[place] [address] [place] [address] Allergies No Known Allergiesdocumented as of this encounter (statuses as of 01/17/2019) Medications Medication Sig Dispensed Refills Start Date End Date Status ciprofloxacin-dexamethas Place 4 Drops in 7.5 mL 2 11/19/2018 Active one (CIPRODEX) 0.3-0.1 % left ear 2 (two) otic dropsIndications: times daily. Mixed conductive and sensorineural hearing loss of both ears documented as of this encounter (statuses as of 01/17/2019) Active Problems Not on filedocumented as of this encounter (statuses as of 01/17/2019) Social History Tobacco Use Types Packs/Day Years Used Date Never Smoker Smokeless Tobacco: Never Used Sex Assigned at Date Recorded Not on file Job Start Date Occupation Industry Not on file Not on file Not on file Travel History Travel Start Travel End No recent travel history available. documented as of this encounter Last Filed Vital Signs Not on filedocumented in this encounter Progress Notes Steph Mart AUD - 12/10/2018 11:00 AM CDTUnable to pursue bilateral fitting due to insurance. Will proceed with LEFT ear implant first. Steph Gillette AUD - 11:00 AM CDT AUDIOLOGY EVALUATION FOR OSSEOINTEGRATED AMPLIFICATION Jose Carlos Reyes 38 year old 12/10/2018 Subjective: Jose Carlos Reyes, a 38 year old male with cognitive impairment, was seen today for a hearing aid evaluation to assess potential with osseointegrated and traditional amplification devices. He was accompanied by his friend, Gordo, who has been helping manage his care. Audiologic evaluation on11/09/18 revealed severe to profound mixed hearing loss bilaterally. See audiogram for additional information. 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 He has never worn hearing aids. Mr. Reyes reported difficulty understanding his family, friends , and people from his sabianist group. He enjoys playing games and watching videos on his phone. Gordo noted concerns re: osseointegrated abutment and Mr. Reyes's history of poor hygiene. Objective: Otoscopy: Surgically altered ears bilaterally. Aided Thresholds: Threshold testing was completed for narrowband noise in the soundfield to evaluatethe aidability of each ear. Results shown below: Device Condition 250Hz 500 Hz 1000 Hz 2000 Hz 4000 Hz 6000 Hz PBK at 45 dB HL Unaided 65 70 60 65 80 NR DNT Oticon Ponto Power Right 40 35 40 40 55 70 DNT Left 40 35 35 35 60 65 DNT Bilateral 30 35 30 35 60 65 60% Cochlear BAHA 5 Power Right 35 25 25 30 45 55 DNT Left 35 25 20 30 50 50 DNT Bilateral 30 25 25 25 50 55 88% Phonak Patricia Q90* Right 50 40 40 40 30 60 DNT Left 40 35 30 30 35 40 DNT Bilateral 40 30 30 30 30 35 DNT * Unable to obtain proper seating behind patient's ear due to abnormal pinna. Hearing aids were hanging suspended from tubing laterally to pinna. Assessment: Mr. Reyes is a candidate for amplification in both ears. Today's testing showed both traditional and osseointegrated amplification can provide adequate benefit. However, due to abnormal pinna s/p multiple bilateral ear surgeries, traditional amplification is not a feasible option. The power hearing aid Mr. Reyes would require is unable to fit on/behind either ear and proves to be uncomfortable, cumbersome, and pose risk for loss/damage. Additionally, Mr. Reyes preferred the sound quality of the osseointegrated devices over the traditional amplification. Today's testing showed the greatest benefit with the Cochlear BAHA device and aided speech testing suggests he could pursue either Connect or Attract abutment. Plan: Discussed amplification options including hearing aid styles, binaural vs. monaural fittings, and additional hearing aid options. Recommend trial period with Cochlear BAHA 5 Power hearing aid fitting in both ears in [place]. Follow up with Dr. Stephens to discuss test results and candidacy for BAHA Connect vs. Attract. Mr. Reyes and his friend verbalized an understanding of results, recommendations, and plan of care of this visit. Camilla Ghotra, NIKIA-A Clinical Audiologist documented in this encounter Plan of Treatment Date Type Specialty Care Team Description 02/11/2019 Hospital Encounter Surgery Thomas Stephens MD [id number] [place], [place] [address] 02/11/2019 Surgery Surgery Thomas Stephens MD BONE ANCHORED HEARING [address] AIDE INSERTION [id number] [place], [place] [address] 02/18/2019 Office Visit Otolaryngology Ludy Quan PA-C [address] [place] [address] [phone] Health Maintenance Due Date Last Done Comments VARICELLA VACCINES (1 of 2 - 13+ 1993 2-dose series) DTaP,Tdap,and Td Vaccines (1 - 11/15/1999 Tdap) INFLUENZA VACCINE 02/06/2019 PNEUMOCOCCAL 0-64 YEARS COMBINED Aged Out No longer eligible based on SERIES patient's age to complete this topic documented as of this encounter Results Not on filedocumented in this encounter Visit Diagnoses Diagnosis Encounter for hearing aid consultation - Primary Mixed hearing loss, bilateral documented in this encounter Insurance Payer Benefit Plan / Subscriber ID Effective Dates Phone Address Type Group [facility] xxxxxxxxx 2018-Present Medicaid COMM PLAN - PLUS MANAGED MEDICAID documented as of this encounter
--- OUTSIDE RECORDS SUMMARY | 2019-04-18 06:12 | XMS REPORT ---
:1980 Author Organization [employer] Care Team Providers Name Role Phone Robert Underwood Provider Role Unavailable Allergies, Adverse Reactions, Alerts Substance Reaction Event Type N.K.D.A. Info Not Available Non Drug Allergy Problems Problem Type Condition Code Onset Dates Condition Status Problem Mixed conductive and sensorineural H90.6 Active hearing loss of both ears Problem Body mass index (BMI) of 40.0-44.9 Z68.41 Active in adult Assessment Mixed conductive and sensorineural H90.6 Active hearing loss of both ears Assessment Rash and nonspecific skin eruption R21 Active Assessment Family history of diabetes mellitus Z83.3 Active Medications Medication Code Code Instructions Start End Status Dosage System Date Date Probiotic Pearls [facility] [id number] - Orally Active as directed Omeprazole [facility] [address]-35 20 MG Orally Active as directed Hydrocortisone [facility] 25251595745 1 % Externally Jan 26Feb Active 1 application Twice a day 2018 10, to affected 2019 area Lialda [facility] [id number] 1.2 GM Orally Active 2 tablets Once a day Results No Known Results Summary Purpose eClinicalWorks Submission
--- OUTSIDE RECORDS SUMMARY | 2019-04-18 06:12 | XMS REPORT | Summary of Care ---
:1980 Author Organization [facility] Address [address] [place] [address] Care Team Providers Name Role Phone Lucio Jin MD Primary Care Provider Unavailable Reason for Visit Reason Comments Hearing Aid Evaluation (Routine) Status Reason Specialty Diagnoses / Referred By Referred To Procedures Contact Contact New Request Audiology Diagnoses Auditory canal atresia, external Christine Reyes Procedures CONSULT AUDIOLOGY ELLIS Mcbride [address] [place] [address] Encounter Details Date Type Department Care Team Description 12/10/2018 Ancillary Visit [facility] Ear, Daria Ferguson, PHD [address] [facility] [id number] [place], [place] [id number] Encounter for hearing aid consultation (Primary Dx); Harlan and Steph Mart, AUD [address] [facility] [place] [address] Mixed hearing loss, bilateral Throat-[place] [address] [place] [address] Allergies No Known Allergiesdocumented as of this encounter (statuses as of 01/12/2019) Medications Medication Sig Dispensed Refills Start Date End Date Status ciprofloxacin-dexamethas Place 4 Drops in 7.5 mL 2 11/19/2018 Active one (CIPRODEX) 0.3-0.1 % left ear 2 (two) otic dropsIndications: times daily. Mixed conductive and sensorineural hearing loss of both ears documented as of this encounter (statuses as of 01/12/2019) Active Problems Not on filedocumented as of this encounter (statuses as of 01/12/2019) Social History Tobacco Use Types Packs/Day Years [...] filedocumented in this encounter Progress Notes Steph Mart, PATRICA - 12/10/2018 11:00 AM CDT AUDIOLOGY EVALUATION FOR OSSEOINTEGRATED [...] family, friends , and people from his roman catholic group. He enjoys playing games and watching [...] hearing aid fitting in both ears in [place]. Follow up with Dr. Stephens to discuss test results and candidacy for BAHA Connect vs. Attract. Mr. Reyes and his friend verbalized an understanding of results, recommendations, and plan of care of this visit. Camilla Ghotra, NIKIA-A Clinical Audiologist documented in this encounter Plan of Treatment Date Type Specialty Care Team Description 02/11/2019 Hospital Encounter Surgery Thomas Stephens MD [id number] [place], [place] [address] 02/11/2019 Surgery Surgery Thomas Stephens MD BONE ANCHORED HEARING [id number] [place], [place] [address] 02/18/2019 Office Visit Otolaryngology Ludy Quan PA-C [address] [place] [address] [phone] Health Maintenance Due Date Last Done Comments [...] ID Effective Dates Phone Address Type Group [facility] xxxxxxxxx 2018-Present Medicaid COMM PLAN - PLUS MANAGED MEDICAID documented as of this encounter
== END 2019-04-16 08:52 | disposition home or self-care (01) ==
LOC: ER 08:04
DX: S05.01XA Injury of conjunctiva and corneal abrasion without foreign body, right eye, initial encounter (principal); W54.1XXA Struck by dog, initial encounter; Y93.89 Activity, other specified; Y92.009 Unspecified place in unspecified non-institutional (private) residence as the place of occurrence of the external cause; Z23 Encounter for immunization
CPT/HCPCS: 90471; 90714; 99283

== ENCOUNTER 2019-05-29 13:13 | Emergency (ER) | payer OTHER ==
--- OUTSIDE RECORDS SUMMARY | 2019-05-29 13:15 | XMS REPORT ---
[...] Status Dosage System Date Date Probiotic Pearls [facility] [id number] - Orally Active as directed Omeprazole [facility] [address]-46 20 MG Orally Active as directed Hydrocortisone [facility] 39751484822 1 % Externally Jan 26Feb Active 1 application Twice a day 2018 10, to affected 2019 area Lialda [facility] [id number] 1.2 GM Orally Active 2 tablets Once a day Results No Known Results Summary Purpose eClinicalWorks Submission
--- OUTSIDE RECORDS SUMMARY | 2019-05-29 13:15 | XMS REPORT ---
:1980 [facility] Address [address] [place] [address] Dr. Reyes[address] [place] [address] Care Team Providers Name Role Phone Unavailable Unavailable Unavailable Problems This patient has no known problems. Allergies, Adverse Reactions, Alerts This patient has no known allergies or adverse reactions. Medications This patient has no known medications.
[2019-05-29] MEDS ORDERED: TRAMADOL HCL 50 MG TAB ONE (13:55)
[2019-05-29] MEDS ORDERED: TETANUS & DIPHTHERIA TOX,ADULT 0.5 ML VIAL ONE (13:55)
--- NOTE | 2019-05-29 14:16 | EDPHYS ---
Physician Documentation [facility] Name: Jose Carlos Reyes Age: 38 yrs Sex: Male : 1980 Arrival Date: 05/29/2019 Time: 13:16 Bed 24 Private MD: ED Physician Colin Nelson HPI: 05/29 13:40 This 38 yrs old Male presents to ER via Ambulatory with complaints of Ingrown pm1 toe nail. 13:40 The patient presents with pain, swelling. The complaints affect the right first toe. pm1 Context: The problem was sustained at home, resulted from possible from ingrown toe nail and from trying to remove it by cutting with a nail clipper. 13:40 Onset: The symptoms/episode began/occurred 2 day(s) ago. Modifying factors: the pm1 symptoms are aggravated by weight bearing. Associated signs and symptoms: Pertinent positives: swelling, Pertinent negatives: fever, numbness, tingling. Severity of symptoms: in the emergency department the symptoms are unchanged. The patient has not recently seen a physician. Patient believed that he had an ingrown toe nail to right big toe and used a toe nail clipper to cut each side of his toe nail. Historical: - Allergies: 13:30 No Known Allergies; ca1 - PMHx: 13:30 None; ca1 - PSHx: 13:30 None; ca1 - Immunization history:: Adult Immunizations up to date, Last tetanus immunization: unknown, Pneumococcal vaccine is not up to date, Flu vaccine is not up to date. - Social history:: Smoking status: Patient/guardian denies using tobacco. - Ebola Screening: : Patient negative for fever greater than or equal to 101.5 degrees Fahrenheit, and additional compatible Ebola Virus Disease symptoms Patient denies exposure to infectious person Patient denies travel to an Ebola-affected area in the 21 days before illness onset No symptoms or risks identified at this time. ROS: 13:40 MS/extremity: Positive for pain, swelling, of the right first toe. pm1 13:40 Constitutional: Negative for fever, chills, and weight loss, Cardiovascular: Negative for chest pain, palpitations, and edema, Respiratory: Negative for shortness of breath, cough, wheezing, and pleuritic chest pain, Abdomen/GI: Negative for abdominal pain, nausea, vomiting, diarrhea, and constipation, Back: Negative for injury and pain. 13:40 Neuro: Negative for headache, weakness, numbness, tingling, and seizure. 13:40 Skin: Positive for swelling, of the right first toe. Exam: 13:40 Constitutional: This is a well developed, well nourished patient who is awake, alert, pm1 and in no acute distress. Head/Face: Normocephalic, atraumatic. Neck: Trachea midline, no thyromegaly or masses palpated, and no cervical lymphadenopathy. Supple, full range of motion without nuchal rigidity, or vertebral point tenderness. No Meningismus. Chest/axilla: Normal chest wall appearance and motion. Nontender with no deformity. No lesions are appreciated. Cardiovascular: Regular rate and rhythm with a normal S1 and S2. No gallops, murmurs, or rubs. Normal PMI, no JVD. No pulse deficits. Respiratory: Lungs have equal breath sounds bilaterally, clear to auscultation and percussion. No rales, rhonchi or wheezes noted. No increased work of breathing, no retractions or nasal flaring. Back: No spinal tenderness. No costovertebral tenderness. Full range of motion. 13:40 Musculoskeletal/extremity: Extremities: grossly normal except: noted in the right first toe: swelling, to medial aspect. 13:40 Skin: Appearance: normal except for affected area, Right great toe nail. No apparent ingrown nail present on examination. Toe nail appears recently cut back on medial and lateral aspect. Redness and granulation tissue lateral to right great toe. 13:40 Neuro: Orientation: is normal, Motor: is normal, moves all fours. Vital Signs: 13:30 BP 130 / 86; Pulse 62; Resp 17 S; Temp 97.3(TE); Pulse Ox 98% on R/A; Weight 136.08 kg; ca1 Height 6 ft. 3 in. (190.50 cm) (R); Pain 0/10; 13:30 Body Mass Index 37.50 (136.08 kg, 190.50 cm) ca1 MDM: 13:35 Patient medically screened. pm1 14:14 Data reviewed: vital signs. Data interpreted: Pulse oximetry: on room air is 98 %. pm1 Interpretation: normal. Counseling: I had a detailed discussion with the patient and/or guardian regarding: the historical points, exam findings, and any diagnostic results supporting the discharge/admit diagnosis, the need for outpatient follow up, a home service director, to return to the emergency department if symptoms worsen or persist or if there are any questions or concerns that arise at home. 14:14 ED course: No apparent ingrown toe nail present. Appears more like mild cellulitis from pm1 cutting nails to far back. Will treat with antibiotics and follow up with podiatry. 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 Exp: rv 11/11/2020. Lot #: [id number]. } Route: IM; Site: right deltoid; 14:28 Follow up: Response: No adverse reaction rv 13:58 Drug: traMADol 50 mg Route: PO; rv 14:28 Follow up: Response: RASS: Alert and Calm (0) rv Disposition: 16:03 Co-signature as Attending Physician, Colin Nelson MD I agree with the assessment and kdr plan of care. Disposition: 05/29/19 14:15 Discharged to Home. Impression: Cellulitis of right toe. - Condition is Stable. - Discharge Instructions: Cellulitis, Adult, Ingrown Toenail. - Prescriptions for Keflex 500 mg Oral Capsule - take 1 capsule by ORAL route every 6 hours for 10 days; 40 capsule. Bactrim DS 800- 160 mg Oral Tablet - take 1 tablet by ORAL route every 12 hours for 10 days; 20 tablet. Ultracet 37.5- 325 mg Oral Tablet - take 1 tablet by ORAL route every 6 hours - for up to 5 days; do not exceed 8 tablets per day.; 20 tablet. - Medication Reconciliation Form, Thank You Letter, Antibiotic Education, Prescription Opioid Use form. - Follow up: Emergency Department; When: As needed; Reason: Worsening of condition. Follow up: Private Physician; When: 2 - 3 days; Reason: Recheck today's complaints, Continuance of care, Re-evaluation by your physician. - Problem is new. - Symptoms have improved. Signatures: Colin Nelson MD MD [facility] Herman Wynne NP BASE PLY HAND pm1 Tye Chacon RN RN rv Reema Marcum RN RN ca1 Corrections: (The following items were deleted from the chart) 14:29 14:15 05/29/2019 14:15 Discharged to Home. Impression: Cellulitis of right toe. rv Condition is Stable. Forms are Medication Reconciliation Form, Thank You Letter, Antibiotic Education, Prescription Opioid Use. Follow up: Emergency Department; When: As needed; Reason: Worsening of condition. Follow up: Private Physician; When: 2 - 3 days; Reason: Recheck today's complaints, Continuance of care, Re-evaluation by your physician. Problem is new. Symptoms have improved. pm1
--- NOTE | 2019-05-29 14:16 | ER ---
Nurse's Notes [facility] Name: Jose Carlos Reyes Age: 38 yrs Sex: Male : 1980 Arrival Date: 05/29/2019 Time: 13:16 Bed 24 Private MD: Diagnosis: Cellulitis of right toe Presentation: 05/29 13:25 Presenting complaint: Patient states: R Ingrown toe nail. Infected wound noted, redness ca1 and swelling present. Transition of care: patient was not received from another setting of care. Onset of symptoms was May 29, 2019. Risk Assessment: Do you want to hurt yourself or someone else? Patient reports no desire to harm self or others. Initial Sepsis Screen: Does the patient meet any 2 criteria? No. Patient's initial sepsis screen is negative. Does the patient have a suspected source of infection? No. Patient's initial sepsis screen is negative. Care prior to arrival: None. 13:25 Method Of Arrival: Ambulatory ca1 13:25 Acuity: ERNESTINE 4 ca1 Historical: - Allergies: 13:30 No Known Allergies; ca1 - PMHx: 13:30 None; ca1 - PSHx: 13:30 None; ca1 - Immunization history:: Adult Immunizations up to date, Last tetanus immunization: unknown, Pneumococcal vaccine is not up to date, Flu vaccine is not up to date. - Social history:: Smoking status: Patient/guardian denies using tobacco. - Ebola Screening: : Patient negative for fever greater than or equal to 101.5 degrees Fahrenheit, and additional compatible Ebola Virus Disease symptoms Patient denies exposure to infectious person Patient denies travel to an Ebola-affected area in the 21 days before illness onset No symptoms or risks identified at this time. Screenin:26 Abuse screen: Denies threats or abuse. Denies injuries from another. Nutritional rv screening: No deficits noted. Tuberculosis screening: No symptoms or risk factors identified. Fall Risk None identified. Assessment: 14:00 General: Appears in no apparent distress. comfortable, Behavior is calm. rv 14:00 Pain: Complains of pain in right foot. Neuro:. Derm: Wound noted Right first toenail. rv Musculoskeletal: Swelling present in Right first toenail. Vital Signs: 13:30 BP 130 / 86; Pulse 62; Resp 17 S; Temp 97.3(TE); Pulse Ox 98% on R/A; Weight 136.08 kg; ca1 Height 6 ft. 3 in. (190.50 cm) (R); Pain 0/10; 13:30 Body Mass Index 37.50 (136.08 kg, 190.50 cm) ca1 ED Course: 13:16 Patient arrived in ED. mr 13:29 Triage completed. ca1 13:30 Arm band placed on right wrist. ca1 13:35 Herman Wynne NP is PHCP. pm1 13:35 Colin Nelson MD is Attending Physician. pm1 13:52 Tye Chacon, TY is Primary Nurse. rv 14:00 Patient has correct armband on for positive identification. Bed in low position. Call rv light in reach. Pulse ox on. NIBP on. 14:26 No provider procedures requiring assistance completed. Patient did not have IV access rv during this emergency room visit. 14:26 Wound care: to wound from cutting nails too deep located on Right first toenail was rv cleaned with Hibiclens, dressed with 4X4s, Patient tolerated poorly. 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 Exp: rv 11/11/2020. Lot #: [id number]. } Route: IM; Site: right deltoid; 14:28 Follow up: Response: No adverse reaction rv 13:58 Drug: traMADol 50 mg Route: PO; rv 14:28 Follow up: Response: RASS: Alert and Calm (0) rv Outcome: 14:15 Discharge ordered by MD. pm1 14:28 Discharged to home ambulatory, with family. rv 14:28 Condition: good 14:28 Discharge instructions given to family, Instructed on discharge instructions, follow up and referral plans. medication usage, Demonstrated understanding of instructions, follow-up care, medications, Prescriptions given X 3. 14:29 Patient left the ED. rv Signatures: Thalia Brewer mr Herman Wynne, RAFFAELE STEAMFITTER pm1 Tye Chacon, TY RN rv Reema Marcum RN RN ca1
[2019-05-29 14:46] VITALS: BP 130/86; TEMP 97.3; O2SAT 98
== END 2019-05-29 14:29 | disposition home or self-care (01) ==
LOC: ER 13:13
DX: L03.031 Cellulitis of right toe (principal); Z23 Encounter for immunization
CPT/HCPCS: 90471; 90714; 99284

== ENCOUNTER 2020-02-14 19:36 | Emergency (ER) | payer OTHER ==
--- OUTSIDE RECORDS SUMMARY | 2020-02-14 19:38 | XMS REPORT ---
:1980 Author Organization [employer] Care Team Providers Name Role Phone Oanh Ballard Provider Role Unavailable Allergies No Known Allergies Problems Problem Type Condition Code Onset Dates Condition Statu s Problem Body mass index (BMI) of 40.0-44.9 Z68.41 Active in adult Problem Mixed conductive and sensorineural H90.6 Active hearing loss of both ears Problem Cochlear implant status Z96.21 Acti ve Assessment Mixed conductive and sensorineural H90.6 Active hearing loss of both ears Assessment Cochlear implant status Z96.21 Acti ve Medications No Known Medications Results No Known Results Summary Purpose [employer] Submission
--- OUTSIDE RECORDS SUMMARY | 2020-02-14 19:38 | XMS REPORT ---
:1980 Author Organization [employer] Care Team Providers Name Role Phone Oanh Ballard Provider Role Unavailable Allergies, Adverse Reactions, Alerts Substance Reaction Event Type N.K.D.A. 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
--- OUTSIDE RECORDS SUMMARY | 2020-02-14 19:38 | XMS REPORT | Continuity of Care Document ---
:1980 Author Organization [facility] t Address [address] [place] [address] Care Team Providers Name Role Phone Doctor Unassigned, Name Attending Clinician Unavailable Angelo OLGUIN Attending Clinician Problems Condition Condition Condition Status Onset Resolution Last Treating Co mments Source Name Details Category Date Date Treatment Clinician Date Mixed Mixed Diagnosis Active [facility] conductive conductive Rhea kes - and and Memoria sensorineu sensorineu l ral ral Outpat[facility] hearing hearing ent loss of loss of Clinics both ears both ears Body mass Body mass Problem Active [facility] index index [facility] - (BMI) of (BMI) of Memori a 40.0-44.9 40.0-44.9 l in adult in adult Outpat i ent Clinics Cochlear Cochlear Diagnosis Active [facility] implant implant [facility] - status status [facility] l Outpat[facility] ent Clinics Allergies, Adverse Reactions, Alerts This patient has no known allergies or adverse reactions. Social History Smoking Status Start Date Stop Date Source Never Smoker [facility] Medications Ordered Filled Start Stop Current Ordering Indication Dosage Frequency Signature Comments Components Source Medication Medication Date Date Medication? Clinician (SIG) Name Name Lialda 1.2 Lialda 1.2 No Lialda 1.2 [facility] gram gram da tablet,julieta tablet,julieta tablet,del Medical yed release yed release ayed G roup release omeprazole omeprazole No omeprazole [facility] 20 mg 20 mg 20 mg da capsule,del capsule,del capsule,de Medical ayed ayed layed Group release release release Lialda Lialda Yes Oanh 2 tablets [facility] [place] [facility] Probiotic Probiotic Yes Oanh as [facility] Pear[facility] Pearls [place] directed [facility] Omeprazole Omeprazole Yes Oanh as [facility] [place] directed [facility] Vital Signs Vital Name Observation Time Observation Value Comments Source BP Diastolic 2018-10-27 00:00:00 84 mm[Hg] [facility] Height 2018-10-27 00:00:00 74 [in_i] [facility] BMI (Body Mass 2018-10-27 00:00:00 42.4 kg/m2 [facility] Group BP Systolic 2018-10-27 00:00:00 120 mm[Hg] [facility] Body Weight 2018-10-27 00:00:00 330.2 [lb_av] [facility] Procedures This patient has no known procedures. Plan of Care Planned Activity Planned Date Details Comments Source Instructions [facility] Encounters Start End Encounter Admission Attending Care Care Encounter Source Date/Time Date/Time Type Type Clinicians Facility Department ID 2019-12-30 2019-12-30 Orders Doctor DANNY [id number] 00:00:00 00:00:00 Only Unassigned, VICENTA [id number] Reid [facility] [id number] 2019-12-29 2019-12-29 Outpatient Dayana Hsieh [id number] [facility] 11:46:00 11:46:00 [facility] 2019-12-12 2019-12-12 Outpatient Dayana Annet [id number] [facility] 15:20:00 15:20:00 [facility] 2019-02-24 2019-02-24 Telephone LADONNA Stephens [id number] 00:00:00 00:00:00 Thomas MELENDEZ [id number] [facility] [id number] 2019-02-14 2019-02-14 Telephone LADONNA Stephens [id number] 00:00:00 00:00:00 Thomas MELENDEZ [id number] [facility] [id number] 2019-01-26 2019-01-26 [facility] [id number] [facility] 15:00:00 15:00:00 [facility] Medicine Outpati ent Clinics 2018-10-27 2018-10-27 [facility] [place] - [id number] [facility] 00:00:00 00:00:00 MD Davin: [address] [facility] [place], [place] - [address], Otolaryngol [facility] [id number] , Ph. 2018-08-30 2018-08-30 [facility] [id number] [facility] 16:22:00 16:22:00 [facility] Medicine Outpati ent Clinics 2018-08-30 2018-08-30 [facility] [id number] [address] 15:00:00 15:00:00 [facility] Medicine Outpati ent Clinics 2018-08-20 2018-08-20 [facility] [id number] 13:30:00 13:30:00 [facility] Medicine Outpati ent Clinics 2018-08-13 2018-08-13 [facility] [id number] 13:30:00 13:30:00 [facility] Medicine Outpati ent Clinics 2018-08-09 2018-08-09 [facility] [id number] 15:15:00 15:15:00 [facility] Medicine Outpati ent Clinics Results This patient has no known results.
--- OUTSIDE RECORDS SUMMARY | 2020-02-14 19:38 | XMS REPORT | Summary of Care ---
:1980 Author Organization [facility] - Health Address [address] [place] [address] Care Team Providers Name Role Phone Lucio Jin MD Primary Care Provider Unavailable Encounter Details Date Type Department Care Team Description 12/30/2019 Orders Only [facility] Doctor Unassigned, No [address] [facility] [place] [address] [address] [place] [address] Allergies No Known Allergiesdocumented as of this encounter (statuses as of 01/05/2020) Medications Medication Sig Dispensed Refills Start Date [...] as of this encounter (statuses as of 01/05/2020) Active Problems No known active problemsdocumented as of this encounter (statuses as of 01/05/2020) Social History Tobacco Use Types Packs/Day Years [...] Treatment Date Type Specialty Care Team Description 01/12/2020 Office Visit Otolaryngology Thomas Stephens M D [address] [place], [place] [address] [phone] Health Maintenance Due Date Last Done Comments VARICELLA VACCINES (1 of 2 - 1981 2-dose childhood series) DTaP,Tdap,and Td Vaccines (1 - 11/15/1991 Tdap) INFLUENZA VACCINE (#1) 2020 Depression Screening 02/12/2020 02/11/2019 PNEUMOCOCCAL 0-64 YEARS COMBINED Aged Out No longer eligible based on SERIES patient's age to complete this topic documented as of this encounter Implants Implanted Type Area Ssis Etl Developer Device Shelf Model / Identifier Expiration Date Ser ial / Lot Baha Implant [id number] 4mm & [id number] Implant Magnet [employer]chlear [employer] #[id number] & [id number] - Sna Left: Ear Cochlear [employer] 06/23/2023 [id number] & [id number] / Implanted: Qty: 1 on 02/11/2019 at [facility] NA / [id number] Baha Implant [id number] 4mm & [id number] Implant Magnet Cochlear [employer] #[id number] & [id number] - Sna Left: Ear Cochlear [employer] 12/15/2022 [id number] & [id number] / Implanted: Qty: 1 [facility] NA / [id number] documented as of this encounter Procedures Procedure Name Priority Date/Time Associated Diagnosis Comme nts REFERRAL- Routine 12/30/2019 12:01 AM CDT REQUEST/RESPONSE documented in this encounter Results Not on filedocumented in this encounter Insurance Payer Benefit Plan / Subscriber ID Effective Dates Phone Addre ss Type Group [facility] xxxxxxxxx 2018-Present Medicaid COMM PLAN - PLUS MANAGED MEDICAID documented as of this encounter
--- NOTE | 2020-02-14 20:34 | EDPHYS ---
Physician Documentation [facility] Name: Jose Carlos Reyes Age: 39 yrs Sex: Male : 1980 Arrival Date: 02/14/2020 Time: 19:41 Bed 17 Private MD: ED Physician Hector Chand HPI: 02/13 21:07 This 39 yrs old Male presents to ER via Wheelchair with complaints of Toe kb Pain. 21:09 The patient presents with pain, that is acute, swelling, tenderness, open wound with kb drainage. The complaints affect the right foot. Context: The problem was sustained at home, resulted from removing nail, the patient can fully bear weight, the patient is able to ambulate. 21:10 Onset: The symptoms/episode began/occurred 1 week(s) ago. Modifying factors: The kb symptoms are alleviated by nothing, the symptoms are aggravated by pressure. Associated signs and symptoms: Pertinent positives: swelling, Pertinent negatives: calf tenderness, fever, nausea, numbness, rash, tingling, vomiting, warmth, weakness. Severity of symptoms: At their worst the symptoms were moderate, in the emergency department the symptoms are unchanged. The patient has not experienced similar symptoms in the past. The patient has not recently seen a physician. Pt reports he had an ingrown nail on right great toe so his brother in law removed his nail. States he thinks there may be a piece still in there because its red, swollen and painful now. Redness noted to entire great toe with purulent drainage and debris (grass, dirt) in nailbed. . Historical: - Allergies: 19:53 No Known Allergies; - Home Meds: 19:53 Probiotics [Active]; Fiber Laxatives [Active]; - PMHx: 19:53 Digestive Issues; - PSHx: 19:53 Ear Surgery; - Immunization history:: Adult Immunizations not up to date. - Social history:: Smoking status: Patient reports the use of cigarette tobacco products, denies chronic smoking, but will smoke occasionally, Patient uses alcohol, but reports only rare drinking. Patient/guardian denies using street drugs. ROS: 21:04 Constitutional: Negative for fever, chills, and weight loss, Cardiovascular: Negative kb for chest pain, palpitations, and edema, Respiratory: Negative for shortness of breath, cough, wheezing, and pleuritic chest pain, Abdomen/GI: Negative for abdominal pain, nausea, vomiting, diarrhea, and constipation, Back: Negative for injury and pain, Neuro: Negative for headache, weakness, numbness, tingling, and seizure. 21:04 MS/extremity: Positive for erythema, pain, swelling, tenderness, of the right first toe. 21:04 Skin: Positive for erythema, swelling. Exam: 21:04 Constitutional: This is a well developed, well nourished patient who is awake, alert, kb and in no acute distress. Head/Face: Normocephalic, atraumatic. Chest/axilla: Normal chest wall appearance and motion. Nontender with no deformity. No lesions are appreciated. Cardiovascular: Regular rate and rhythm with a normal S1 and S2. No gallops, murmurs, or rubs. Normal PMI, no JVD. No pulse deficits. Respiratory: Lungs have equal breath sounds bilaterally, clear to auscultation and percussion. No rales, rhonchi or wheezes noted. No increased work of breathing, no retractions or nasal flaring. Abdomen/GI: Soft, non-tender, with normal bowel sounds. No distension or tympany. No guarding or rebound. No evidence of tenderness throughout. Back: No spinal tenderness. No costovertebral tenderness. Full range of motion. Neuro: Awake and alert, GCS 15, oriented to person, place, time, and situation. Cranial nerves II-XII grossly intact. Motor strength 5/5 in all extremities. Sensory grossly intact. Cerebellar exam normal. Normal gait. 21:04 Skin: Appearance: normal except for affected area, Color: erythematous, Temperature: warm, Moisture: normal moisture, swelling, noted on the right first toe, that are moderate, purulent drainage to toe where nail was removed. Vital Signs: 19:47 BP 142 / 89; Pulse 62; Resp 18; Temp 98.9; Pulse Ox 99% ; Weight 107.5 kg; Height 6 ft. wh 3 in. (190.50 cm); 20:28 BP 148 / 79; Pulse 67; Resp 16; Pulse Ox 100% on R/A; Pain 6/10; mt2 19:47 Body Mass Index 29.62 (107.50 kg, 190.50 cm) MDM: 19:57 Patient medically screened. kb 21:06 Data reviewed: vital signs, nurses notes. Data interpreted: Pulse oximetry: on room air kb is 100 %. Interpretation: normal. Counseling: I had a detailed discussion with the patient and/or guardian regarding: the historical points, exam findings, and any diagnostic results supporting the discharge/admit diagnosis, the need for outpatient follow up, a c consultant, to return to the emergency department if symptoms worsen or persist or if there are any questions or concerns that arise at home. ED course: Pt educated to keep wound clean, dry and covered. Educated on importance of wound care for healing.. 02/13 20:33 Order name: Wound Care: clean and dress; Complete Time: 20:38 kb Administered Medications: 20:22 CANCELLED (Duplicate Order): Bactrim 160 mg-800 mg (DS) 160 mg PO every 6 hours mt2 20:27 Drug: [place] 10 mg-325 mg 1 tabs Route: PO; mt2 20:45 Follow up: Response: No adverse reaction; Pain is decreased mt2 20:28 Drug: Bactrim (160 mg-800 mg (DS) 1 tablet Route: PO; mt2 20:46 Follow up: Response: No adverse reaction mt2 Disposition: 02/14 02:59 Co-signature as Attending Physician, Hector Chand MD. [facility] Disposition: 02/14/20 20:33 Discharged to Home. Impression: Local infection of the skin and subcutaneous tissue, unspecified - right great toe. - Condition is Stable. - Discharge Instructions: Ingrown Toenail, Wound Infection, [id number]. - Prescriptions for Bactrim DS 800- 160 mg Oral Tablet - take 1 tablet by ORAL route every 12 hours for 10 days; 20 tablet. - Medication Reconciliation Form, Thank You Letter, Antibiotic Education, Prescription Opioid Use form. - Follow up: Emergency Department; When: As needed; Reason: Worsening of condition. Follow up: Private Physician; When: 2 - 3 days; Reason: Recheck today's complaints, Continuance of care, Re-evaluation by your physician. Signatures: Susan Elaine, COST ESTIMATING MANAGER-C COST ESTIMATING MANAGER-Chadwick Palma Maurice, MD MD [facility] Erin Foley RN RN mt2 Corrections: (The following items were deleted from the chart) 02/13 20:22 20:22 Bactrim 160 mg-800 mg (DS) 160 mg PO every 6 hours ordered. mt2 mt2 20:46 20:33 02/14/2020 20:33 Discharged to Home. Impression: Local infection of the skin and mt2 subcutaneous tissue, unspecified - right great toe. Condition is Stable. Forms are Medication Reconciliation Form, Thank You Letter, Antibiotic Education, Prescription Opioid Use. Follow up: Emergency Department; When: As needed; Reason: Worsening of condition. Follow up: Private Physician; When: 2 - 3 days; Reason: Recheck today's complaints, Continuance of care, Re-evaluation by your physician. kb
--- NOTE | 2020-02-14 20:34 | ER ---
Nurse's Notes [facility] Name: Jose Carlos Reyes Age: 39 yrs Sex: Male : 1980 Arrival Date: 02/14/2020 Time: 19:41 Bed 17 Private MD: Diagnosis: Local infection of the skin and subcutaneous tissue, unspecified-right great toe Presentation: 02/13 19:47 Chief complaint: Patient states: he had an ingrown on right great toe, removed the whole nail a week ago. Pt thinks there is still a piece of nail that is left. Pt C/O pain for a week but denies fever. Coronavirus screen: Client denies travel out of the [place] in the last 14 days. At this time, the client does not indicate any symptoms associated with coronavirus-19. Ebola Screen: Patient negative for fever greater than or equal to 101.5 degrees Fahrenheit, and additional compatible Ebola Virus Disease symptoms Patient denies exposure to infectious person. Initial Sepsis Screen: Does the patient meet any 2 criteria? No. Patient's initial sepsis screen is negative. Does the patient have a suspected source of infection? Yes: Skin breakdown/wound. Risk Assessment: Do you want to hurt yourself or someone else? Patient reports no desire to harm self or others. Onset of symptoms was February 14, 2020. 19:47 Method Of Arrival: Wheelchair 19:47 Acuity: ERNESTINE 4 Historical: - Allergies: 19:53 No Known Allergies; - Home Meds: 19:53 Probiotics [Active]; Fiber Laxatives [Active]; - PMHx: 19:53 Digestive Issues; - PSHx: 19:53 Ear Surgery; - Immunization history:: Adult Immunizations not up to date. - Social history:: Smoking status: Patient reports the use of cigarette tobacco products, denies chronic smoking, but will smoke occasionally, Patient uses alcohol, but reports only rare drinking. Patient/guardian denies using street drugs. Screenin:54 Abuse screen: Denies threats or abuse. Denies injuries from another. Nutritional screening: No deficits noted. Tuberculosis screening: No symptoms or risk factors identified. Fall Risk None identified. Assessment: 20:15 Reassessment: Patient and/or family updated on plan of care and expected duration. Pain mt2 level reassessed. Patient is alert, oriented x 3, equal unlabored respirations, skin warm/dry/pink. General: Appears in no apparent distress. Behavior is cooperative. Pain: Complains of pain in right first toe and Right first toenail. Vital Signs: 19:47 BP 142 / 89; Pulse 62; Resp 18; Temp 98.9; Pulse Ox 99% ; Weight 107.5 kg; Height 6 ft. 3 in. (190.50 cm); 20:28 BP 148 / 79; Pulse 67; Resp 16; Pulse Ox 100% on R/A; Pain 6/10; mt2 19:47 Body Mass Index 29.62 (107.50 kg, 190.50 cm) ED Course: 19:41 Patient arrived in ED. cl3 19:49 Susan Elaine FNP-C is PHCP. kb 19:49 Hector Chand MD is Attending Physician. kb 19:50 Triage completed. 20:02 Erin Foley, RN is Primary Nurse. mt2 20:16 Arm band placed on right wrist. mt2 20:16 Patient has correct armband on for positive identification. Bed in low position. Call mt2 light in reach. Side rails up X 1. Side rails up X2. 20:28 Patient did not have IV access during this emergency room visit. Wound care: to toe mt2 wound was soaked in. 20:39 No provider procedures requiring assistance completed. ss Administered Medications: 20:22 CANCELLED (Duplicate Order): Bactrim 160 mg-800 mg (DS) 160 mg PO every 6 hours mt2 20:27 Drug: [place] 10 mg-325 mg 1 tabs Route: PO; mt2 20:45 Follow up: Response: No adverse reaction; Pain is decreased mt2 20:28 Drug: Bactrim (160 mg-800 mg (DS) 1 tablet Route: PO; mt2 20:46 Follow up: Response: No adverse reaction mt2 Outcome: 20:33 Discharge ordered by . kb 20:39 Condition: good ss 20:39 Discharge instructions given to patient, Instructed on discharge instructions, follow up and referral plans. medication usage, wound care, Demonstrated understanding of instructions, follow-up care, medications, wound care, Prescriptions given X 1. 20:45 Discharged to home ambulatory. mt2 20:46 Patient left the ED. mt2 Signatures: Susan Elaine, MEDICAL BILLING SUPERVISOR-C MEDICAL BILLING SUPERVISOR-CkShabnam Jolly, TY RN ss [place] Nicholas Charde cl3 Erin Foley RN RN mt2
[2020-02-14] MEDS ORDERED: SMZ./TMP. 800/160 MG TABLET ONE (20:36)
[2020-02-14] MEDS ORDERED: HYDROCODONE/APAP 10/325 TAB ONE (20:36)
[2020-02-14 22:26] VITALS: TEMP 98.9
[2020-02-14 22:28] VITALS: BP 148/79; O2SAT 100
== END 2020-02-14 20:46 | disposition home or self-care (01) ==
LOC: ER 19:36
DX: L08.9 Local infection of the skin and subcutaneous tissue, unspecified (principal); F17.210 Nicotine dependence, cigarettes, uncomplicated
CPT/HCPCS: 99283

== ENCOUNTER 2021-03-15 20:02 | Emergency (ER) | payer OTHER ==
[2021-03-15] MEDS ORDERED: HYDROCODONE/APAP 7.5/325 MG TAB ONE (21:10)
[2021-03-15] MEDS ORDERED: IBUPROFEN 400 MG TAB ONE (21:10)
--- NOTE | 2021-03-15 21:51 | RAD REPORT ---
EXAM DESCRIPTION: RAD - Forearm Left - 03/15/2021 9:09 pm CLINICAL HISTORY: Left forearm pain status post injury FINDINGS: Comminuted moderately displaced fracture involves the distal diaphysis ulna. 6 millimeter bony density lies adjacent to the medial aspect of the distal radius. This may be chroni c or represent an acute avulsion fracture perhaps from the distal radius.
--- NOTE | 2021-03-15 21:51 | RAD REPORT ---
EXAM DESCRIPTION: RAD -Hand Left 3 View - 03/15/2021 9:09 pm CLINICAL HISTORY: Left hand pain status post injury FINDINGS: 6 millimeter bony density lies adjacent to the medial aspect of the distal radius. This may be chroni c or represent an acute avulsion fracture perhaps from the distal radius. No additional fracture involving the left hand seen. No dislocation
--- NOTE | 2021-03-15 21:59 | EDPHYS ---
Physician Documentation [facility] – [place], [place] Name: Jose Carlos Reyes Age: 40 yrs Sex: Male : 1980 Arrival Date: 03/15/2021 Time: 20:05 Bed 8 Private MD: ED Physician Filiberto Carnes HPI: 03/15 20:45 This 40 yrs old Male presents to ER via Ambulatory with complaints of Fall cp Injury. Historical: - Allergies: 20:17 No Known Allergies; vg1 - Home Meds: 20:17 probiotics [Active]; Fiber Laxatives [Active]; vg1 - PMHx: 20:17 digestive issues; vg1 - Immunization history:: Adult Immunizations up to date, Client reports receiving the 2nd dose of the Covid vaccine. - Social history:: Smoking status: Patient denies any tobacco usage or history of. - Immunization history: Last tetanus immunization: - up to date. ROS: 20:50 MS/extremity: Positive for injury or acute deformity, decreased range of motion, pain, cp swelling, tenderness, of the left forearm and left hand. 20:50 Constitutional: Negative for body aches, chills, fever. cp 20:50 Neck: Negative for pain with movement, pain at rest, stiffness. 20:50 Cardiovascular: Negative for chest pain, palpitations. 20:50 Respiratory: Negative for cough, shortness of breath, wheezing. 20:50 Abdomen/GI: Negative for abdominal pain. 20:50 Back: Negative for pain at rest, pain with movement. 20:50 Neuro: Negative for altered mental status, headache, weakness. 20:50 All other systems are negative. Exam: 20:55 Constitutional: The patient appears in no acute distress, alert, awake, non-toxic, well cp developed, well nourished, uncomfortable. 20:55 Head/Face: Normocephalic, atraumatic. cp 20:55 Neck: C-spine: vertebral tenderness, is not appreciated, crepitus, is not appreciated, ROM/movement: is normal, is supple, without pain, no range of motions limitations. 20:55 Chest/axilla: Inspection: normal, Palpation: is normal, no crepitus, no tenderness. 20:55 Cardiovascular: Rate: normal, Rhythm: regular, Pulses: Pulses are 2+ in left radial artery. JVD: is not appreciated. 20:55 Respiratory: the patient does not display signs of respiratory distress, Respirations: normal, no use of accessory muscles, no retractions, labored breathing, is not present, Breath sounds: are clear throughout, no decreased breath sounds, no stridor, no wheezing. 20:55 Abdomen/GI: Inspection: abdomen appears normal, Palpation: abdomen is soft and non-tender, in all quadrants. 20:55 Back: ROM is normal, vertebral tenderness, is not appreciated. 20:55 Musculoskeletal/extremity: Extremities: grossly normal except: noted in the left forearm and left hand: pain, swelling, tenderness, the left hand Tingling of extremity. Joints: All joints are normal except the left elbow and left wrist displays painful range of motion. 20:55 Skin: cellulitis, is not appreciated, no rash present. intact of left upper extremity with no open wounds. Vital Signs: 20:12 BP 109 / 67; Pulse 74; Resp 16; Temp 98.5; Pulse Ox 100% ; Weight 86.18 kg; Height 6 vg1 ft. 3 in. (190.50 cm); Pain 0/10; 22:46 BP 110 / 74; Pulse 78; Resp 18; Pulse Ox 100% on R/A; Pain 0/10; ms4 20:12 Body Mass Index 23.75 (86.18 kg, 190.50 cm) vg1 [place] Coma Score: 21:07 Eye Response: spontaneous(4). Verbal Response: oriented(5). Motor Response: obeys ms4 commands(6). Total: 15. Trauma Score (Adult): 21:07 Eye Response: spontaneous(1); Verbal Response: oriented(1); Motor Response: obeys ms4 commands(2); Systolic BP: > 89 mm Hg(4); Respiratory Rate: 10 to 29 per min(4); [place] Score: 15; Trauma Score: 12 MDM: 20:32 Patient medically screened. cp 21:57 Data reviewed: vital signs, nurses notes, radiologic studies, plain films. cp 21:57 Test interpretation: by ED physician or midlevel provider: plain radiologic studies. cp Counseling: I had a detailed discussion with the patient and/or guardian regarding: the historical points, exam findings, and any diagnostic results supporting the discharge/admit diagnosis, radiology results, the need for outpatient follow up, for definitive care, a orthopedic surgeon, to return to the emergency department if symptoms worsen or persist or if there are any questions or concerns that arise at home. 03/15 20:27 Order name: Forearm Left XRAY; Complete Time: 21:51 vg1 03/15 21:52 Interpretation: Report reviewed. cp 03/15 20:27 Order name: Hand Left 3 View XRAY; Complete Time: 21:51 vg1 03/15 21:03 Order name: Sling; Complete Time: 22:13 cp 03/15 21:03 Order name: Splint - Sugar Tong - Forearm; Complete Time: 22:13 cp Administered Medications: 20:46 Drug: Hydrocodone-Acetaminophen (7.5 mg-325 mg) 1 tabs Route: PO; ms4 20:46 Drug: Ibuprofen 800 mg Route: PO; ms4 Disposition: 22:10 Chart complete. cp Disposition Summary: 03/15/21 21:58 Discharge Ordered Location: Home cp Problem: new cp Symptoms: have improved cp Condition: Stable cp Diagnosis - Displaced comminuted fracture of shaft of ulna, left arm, initial encounter for cp closed fracture Followup: cp - With: Jeffery Dailey MD - When: 2 - 3 days - Reason: Recheck today's complaints Discharge Instructions: - Discharge Summary Sheet cp - Ulnar Fracture cp Forms: - Medication Reconciliation Form cp - Thank You Letter cp - Antibiotic Education cp - Prescription Opioid Use cp Prescriptions: - Ibuprofen 800 mg Oral Tablet - take 1 tablet by ORAL route every 8 hours As needed take with food; 30 tablet; cp Refills: 0, Product Selection Permitted - Ultracet 37.5-325 mg Oral Tablet - take 1 tablet by ORAL route every 6 hours - for up to 5 days; do not exceed 8 cp tablets per day.; 20 tablet; Refills: 0, Product Selection Permitted Signatures: Dispatcher [employer] EDMS Truong Landaverde PA PA cp Stacey Frazier RN RN vg1 Alexandria Bansal RN RN ms4 Corrections: (The following items were deleted from the chart) : 20:33 Elbow Left 3 View+RAD.RAD.BRZ ordered. EDMS EDMS
--- NOTE | 2021-03-15 21:59 | ER ---
Nurse's Notes [facility] [place] Name: Jose Carlos Reyes Age: 40 yrs Sex: Male : 1980 Arrival Date: 03/15/2021 Time: 20:05 Bed 8 Private MD: Diagnosis: Displaced comminuted fracture of shaft of ulna, left arm, initial encounter for closed fracture Presentation: 03/15 20:12 Chief complaint: Patient states: Pt was on a ladder and fell about five feet onto Left vg1 arm yeserday 03/14/21. Pts Left hand, wrist and forearm appear to be swollen. States no pain at this time if keeps still. Coronavirus screen: Vaccine status: Patient reports receiving the 2nd dose of the covid vaccine. Ebola Screen: Patient negative for fever greater than or equal to 101.5 degrees Fahrenheit, and additional compatible Ebola Virus Disease symptoms. Initial Sepsis Screen: Does the patient meet any 2 criteria? No. Patient's initial sepsis screen is negative. Does the patient have a suspected source of infection? No. Patient's initial sepsis screen is negative. Risk Assessment: Do you want to hurt yourself or someone else? Patient reports no desire to harm self or others. Onset of symptoms was March 14, 2021. 20:12 Method Of Arrival: Ambulatory vg1 20:12 Acuity: ERNESTINE 4 vg1 21:08 Care prior to arrival: None. Mechanism of Injury: Fall from ladder approximately 5 feet.ms4 Triage Assessment: 20:17 General: Appears in no apparent distress. uncomfortable, Behavior is calm, cooperative. vg1 Pain: Complains of pain in left arm. Historical: - Allergies: 20:17 No Known Allergies; vg1 - Home Meds: 20:17 probiotics [Active]; Fiber Laxatives [Active]; vg1 - PMHx: 20:17 digestive issues; vg1 - Immunization history:: Adult Immunizations up to date, Client reports receiving the 2nd dose of the Covid vaccine. - Social history:: Smoking status: Patient denies any tobacco usage or history of. - Immunization history: Last tetanus immunization: - up to date. Screenin:06 Abuse screen: Denies threats or abuse. Denies injuries from another. Nutritional ms4 screening: No deficits noted. Tuberculosis screening: No symptoms or risk factors identified. Fall Risk None identified. Primary Survey: 21:06 NO uncontrolled hemorrhage observed. A: The patient is alert. Airway: patent. ms4 Breathing/Chest: Respiratory pattern: regular, Respiratory effort: spontaneous, unlabored, Breath sounds: clear, Chest inspection: symmetrical rise and fall of the chest. Circulation: Cardiac rhythm: sinus rhythm Heart tones present. Pulses: palpable right radial artery and left radial artery and left arm. Skin color: pink, Skin temperature: warm, dry. Disability Alert. Exposure/Environment: All clothing and personal items were removed. A warming method has been applied: A warm blanket has been provided to the patient. Reassessment Airway Airway Patent Breathing/Chest Respiratory pattern Regular Respiratory effort Spontaneous Unlabored Breath sounds Clear Chest inspection Symmetrical Circulation Heart rhythm Sinus rhythm Disability Alert. Assessment: 20:50 General: Appears in no apparent distress. Behavior is calm, cooperative. Pain: ms4 Complains of pain in left arm. Neuro: Intact Numbness in left arm. Cardiovascular: No deficits noted. Respiratory: No deficits noted. GI: No deficits noted. : No deficits noted. Musculoskeletal: Circulation, motion, and sensation intact. Capillary refill is sluggish, in left Range of motion: limited in left arm Bony deformity noted of left arm Swelling present in left arm Tenderness present in left arm Reports numbness in left arm pain in left arm since yesterday. Injury Description: Deformity sustained to left arm. 22:44 Reassessment: Patient appears in no apparent distress at this time. No changes from ms4 previously documented assessment. Patient and/or family updated on plan of care and expected duration. Pain level reassessed. Patient is alert, oriented x 3, equal unlabored respirations, skin warm/dry/pink. splint applied to left forearm. 2+ pulses noted. sensation intact. cap refill <3 seconds. RICE education provided. splint checked by ELLIS Landaverde. Vital Signs: 20:12 BP 109 / 67; Pulse 74; Resp 16; Temp 98.5; Pulse Ox 100% ; Weight 86.18 kg; Height 6 vg1 ft. 3 in. (190.50 cm); Pain 0/10; 22:46 BP 110 / 74; Pulse 78; Resp 18; Pulse Ox 100% on R/A; Pain 0/10; ms4 20:12 Body Mass Index 23.75 (86.18 kg, 190.50 cm) vg1 [place] Coma Score: 21:07 Eye Response: spontaneous(4). Verbal Response: oriented(5). Motor Response: obeys ms4 commands(6). Total: 15. Trauma Score (Adult): 21:07 Eye Response: spontaneous(1); Verbal Response: oriented(1); Motor Response: obeys ms4 commands(2); Systolic BP: > 89 mm Hg(4); Respiratory Rate: 10 to 29 per min(4); [place] Score: 15; Trauma Score: 12 ED Course: 20:05 Patient arrived in ED. wm 20:17 Triage completed. vg1 20:17 Arm band placed on. vg1 20:27 Truong Landaverde PA is PHCP. cp 20:27 Filiberto Carnes MD is Attending Physician. cp 20:46 Hand Left 3 View XRAY Sent. ms4 20:46 Forearm Left XRAY Sent. ms4 21:08 No provider procedures requiring assistance completed. ms4 21:09 Forearm Left XRAY In Process Unspecified. EDMS 21:09 Hand Left 3 View XRAY In Process Unspecified. EDMS 21:09 Patient maintains SpO2 saturation greater than 95% on room air. ms4 21:10 Patient has correct armband on for positive identification. ms4 21:10 Thermoregulation: warm blanket given to patient. ms4 21:57 Jeffery Dailey MD is Referral Physician. cp 22:14 Orthoglass splint: Sugar tong splint applied on left arm. Sling applied to left arm. oe 22:45 Patient did not have IV access during this emergency room visit. ms4 Administered Medications: 20:46 Drug: Hydrocodone-Acetaminophen (7.5 mg-325 mg) 1 tabs Route: PO; ms4 20:46 Drug: Ibuprofen 800 mg Route: PO; ms4 Intake: 22:45 PO: 0ml; Total: 0ml. ms4 Outcome: 21:58 Discharge ordered by . cp 22:45 Discharged to home ambulatory. ms4 22:45 Condition: stable 22:45 Condition: good 22:45 Discharge instructions given to patient, Instructed on discharge instructions, follow up and referral plans. Demonstrated understanding of instructions, follow-up care, medications, Prescriptions given X 2. 22:45 Patient's length of stay was not longer than 2 hours. ms4 22:46 Patient left the ED. ms4 Signatures: Dispatcher [employer] EDMS Truong Landaverde PA PA cp Espinosa, Orlando oe Garcia, Victoria, RN RN vg1 Adelina Still Alexandria Bansal, RN RN ms4 Corrections: (The following items were deleted from the chart) 21:08 20:46 To radiology for Elbow Left 3 View+RAD.RAD.BRZ. ms4 EDMS
[2021-03-15 22:52] VITALS: BP 110/74; TEMP 98.5; O2SAT 100
[2021-03-15] MEDS ORDERED: NA CHLORIDE 0.9% 250 ML ONE (22:54)
== END 2021-03-15 22:46 | disposition home or self-care (01) ==
LOC: ER 20:02
PROC: 0PSLXZZ Reposition Left Ulna, External Approach (ICD-10-PCS; principal; 2021-03-15)
DX: S52.252A Displaced comminuted fracture of shaft of ulna, left arm, initial encounter for closed fracture (principal); W11.XXXA Fall on and from ladder, initial encounter; Y93.9 Activity, unspecified; Y92.017 Garden or yard in single-family (private) house as the place of occurrence of the external cause
CPT/HCPCS: 73130; 73090; 99284; 25535; J7050